=== PATIENT | female | born 1960 | race Caucasian/White ===

== ENCOUNTER 2025-03-07 11:36 | Emergency (ER) | payer MEDICARE, MEDICAID, SELFPAY ==
[2025-03-07 11:45] VITALS: BP 145/76; PULSE 78; TEMP 36.4; O2SAT 100; BMI 17.5
--- NOTE | 2025-03-07 11:49 | ECG_ITS ---
[facility] Test Date: 2025-03-07 Pat Name: Yelena Beal Department: Room: Gender: Female Assistant Professor Of Philosophy: : 1960 Requested By: Emerson Escobar Order Number: [id number] Avila MD: Randal Mistry M.D. Measurements Intervals [place] Rate: 77 P: 53 RI: 149 QRS: -20 QRSD: 92 T: 16 QT: 361 QTc: 411 Interpretive Statements SINUS RHYTHM No previous ECG available for comparison Electronically Signed On 03-09-2025 13:11:15 CDT by Randal Mistry M.D. [id number]
--- OUTSIDE RECORDS SUMMARY | 2025-03-07 11:51 | XMS_ITS | Encounter Summary ---
Author Organization [facility] Address [address] [place] [address] Care Team Providers Care Tractor Operator Laser Leveling Name Role Phone Jamal Gant MD Primary Care Provider Encounter Details Date Type Department Care Team (Late st Contact Info) Description 02/07/2008 Orders Only [facility]iology [address] [place] [address] System, Provider Not In, [address] [place] [address] Social History Tobacco Use Types Packs/Day Years Used Date Smoking Tobacco: Never Assessed Comments Unknown Sex and Gender Information Value Date Recorded Sex Assigned at Not on file Legal Sex Female 8:00 PM CDT Gender Identity Not on file Sexual Orientation Not on file documented as of this encounter Plan of Treatment Not on file documented as of this encounter Procedures Procedure Name Priority Date/Time Associated Diagnosis Comments OUTSIDE IMAGES 02/07/2008 3:48 PM CDT documented in this encounter Results * Outside Images (02/07/2008 3:48 PM CDT) Anatomical Region Laterality Modality N/A Radiographic Amena ging 02/07/2008 3:48 PM CDT Narrative 02/07/2008 3:48 PM CDT Historic images from [facility] exist and can be viewed by using the hyperlink to access [employer] pacs: KUB Abd Single Procedure Note System, Provider Not In - 06/13/2018 Historic images from [facility] exist and can be viewed by using theOsseon Therapeuticslink to access [employer] pacs: KUB Abd Single us Provider Not In System MD TRE[facility] IM[facility] OR DERABLES Final Result documented in this encounter Visit Diagnoses Not on filedocumented in this encounter Additional Health Concerns Infection Onset Date Last Indicated Resolved Time COVID-19 (rule out) 02/17/2021 02/17/2021 02/20/20 21 1:30 AM CDT documented as of this encounter Care Teams Tractor Operator Laser Leveling Relationship Specialty Start Date End Date Jamal Gant MD [address] [place] [id number] PCP - General Internal Medicine 10/31/20 documented as of this encounter
--- OUTSIDE RECORDS SUMMARY | 2025-03-07 11:51 | XMS_ITS | Encounter Summary ---
Author Organization [facility] Address [address] [place] [address] Care Team Providers Care Dining Chair Seat Cushion Trimmer Name Role Phone Jamal Gant MD Primary Care Provider Encounter Details Date Type Department Care Team (Late st Contact Info) Description 06/01/2010 Orders Only [facility] Radiology [address] [place] [address] System, Provider Not In, [address] [place] [address] Social History Tobacco Use Types Packs/Day Years [...] Priority Date/Time Associated Diagnosis Comments OUTSIDE IMAGES 06/01/2010 8:54 AM BOOKSEAMER BLINDSTITCH documented in this encounter Results * Outside Images (06/01/2010 8:54 AM BOOKSEAMER BLINDSTITCH) Anatomical Region Laterality Modality N/A Radiographic Amena ging 06/01/2010 8:54 AM BOOKSEAMER BLINDSTITCH Narrative 06/01/2010 8:54 AM BOOKSEAMER BLINDSTITCH Historic images from [facility] exist and can be viewed by using the hyperlink to access [employer] pacs: KAREN SCREENING SWAPNA Procedure Note System, Provider Not In - 07/14/2020 Historic images from [facility] exist and can be viewed byusing the hyperlink to access [employer] pacs: KAREN SCREENING SWAPNA us Provider Not In System MD [facility] OR DERABLES Final Result documented in this encounter Visit Diagnoses Not on filedocumented in this encounter Additional Health Concerns Infection Onset Date Last Indicated Resolved Time COVID-19 (rule out) 02/17/2021 02/17/2021 02/20/20 21 1:30 AM CDT documented as of this encounter Care Teams Dining Chair Seat Cushion Trimmer Relationship Specialty Start Date End Date Jamal Gant MD [address] [place] [address] PCP - General Internal Medicine 10/31/20 documented as of this encounter
--- OUTSIDE RECORDS SUMMARY | 2025-03-07 11:51 | XMS_ITS | Encounter Summary ---
Author Organization [facility] Address [address] [place] [address] Care Team Providers Care Motorcycle Mechanic Apprentice Name Role Phone Jamal Gant MD Primary Care Provider [phone] Reason for Visit * Reason Comments Med Refill Encounter Details Date Type Department Care Team (Late st Contact Info) Description 02/24/2021 Refill [facility] [place] - Primary Care [address] [place] [address] Jamal Gant MD [address] [facility] [address] [place] [address] Left shoulder pain, unspecified chronicity Social History Tobacco Use Types Packs/Day Years Used Date Smoking Tobacco: Former Smokeless Tobacco: Never Alcohol Use Standard Drinks/Week Comments No 0 (1 standard drink = 0.6 oz pur e alcohol) PHQ-2 Answer Date Recorded PHQ-2 Score 0 08/18/2020 Comments No Sex and Gender Information Value Date Recorded Sex Assigned at Not on file Legal Sex Female 8:00 PM CDT Gender Identity Not on file Sexual Orientation Not on file COVID-19 Exposure Response Date Recorded In the last month, have you been in contact with someone who was confirmed or suspected to have Coronavirus / COVID-19? No / Unsure 02/17/2021 2:39 PM CDT documented as of this encounter Plan of Treatment Not on file documented as of this encounter Visit Diagnoses Diagnosis Left shoulder pain, unspecified chronicity documented in this encounter Additional Health Concerns Health Status Noted Date Alive and well 09/22/2020 Assessment Noted Time A fall risk assessment has been complete d for the patient 09/22/2020 11:14 AM CDT documented as of this encounter Care Teams Motorcycle Mechanic Apprentice Relationship Specialty Start Date End Date Jamal Gant MD [address] [facility] [place] [address] PCP - General Internal Medicine 10/31/20 documented as of this encounter
--- OUTSIDE RECORDS SUMMARY | 2025-03-07 11:51 | XMS_ITS | Encounter Summary ---
Author Organization [facility] Address [address] [place] [address] Care Team Providers Care Manager Combination Name Role Phone Jamal Gant MD Primary Care Provider [phone] Reason for Visit * Reason Comments Med Refill Encounter Details Date Type Department Care Team (Late st Contact Info) Description 12/11/2020 Refill [facility] [place] - Primary Care [address] [place] [address] Jamal Gant MD [address] [facility] [address] [place] [address] Nausea; Motion sickness, initial encounter; Bronchitis Social History Tobacco Use Types Packs/Day Years [...] on file documented as of this encounter Miscellaneous Notes * Telephone Encounter - Urvashi Santiago LPN - 12/11/2020 2:58 PM CDT Patient to call the office. documented in this encounter Plan of Treatment Not on file documented as of this encounter Visit Diagnoses Diagnosis Nausea Nausea alone Motion sickness, initial encounter Bronchitis Bronchitis, not specified as acute or chronic documented in this encounter Additional Health Concerns Health Status Noted Date Alive and well 09/22/2020 Infection Onset Date Last Indicated Resolved Time COVID-19 (rule out) 02/17/2021 02/17/2021 02/20/20 21 1:30 AM CDT Assessment Noted Time A fall risk assessment has been complete d for the patient 09/22/2020 11:14 AM CDT documented as of this encounter Care Teams Manager Combination Relationship Specialty Start Date End Date Jamal Gant MD [address] [place] [id number] PCP - General Internal Medicine 10/31/20 documented as of this encounter
--- OUTSIDE RECORDS SUMMARY | 2025-03-07 11:51 | XMS_ITS | Encounter Summary ---
Author Organization [facility] Address [address] [place] [address] Care Team Providers Care Mold Insert Changer Name Role Phone Jamal Gant MD Primary Care Provider [phone] Reason for Visit * Reason Comments Med Refill Encounter Details Date Type Department Care Team (Late st Contact Info) Description 02/28/2025 Refill [facility] [place] - Primary Care [address] [place] [address] Lee Meza MD [address] [facility] [address] [place] [address] Primary osteoarthritis involving multiple joints; Lumbar degenerative disc disease Social History Tobacco Use Types Packs/Day Years Used Date Smoking Tobacco: Former Cigarettes 2017 Smokeless Tobacco: Never Comments:quit in 2013 Alcohol Use Standard Drinks/Week Comments No 0 (1 standard drink = 0.6 oz pur e alcohol) [facility] Utilities Answer Date Recorded In the past 12 months has [employer] electric, gas, oil, or water company threatened to shut off services in your home? No 01/01/2025 PHQ-2 Answer Date Recorded PHQ-2 Score 2 09/03/2024 Hunger Vital Sign Answer Date Recorded Within the past 12 months, y ou worried that your food would run out before you got the money to buy more. Never true 01/02/20 25 Within the past 12 months, t he food you bought just didn't last and you didn't have money to get more. Never true 01/01/2025 PRAPARE - Transportation Answer Date Re corded In the past 12 months, has l ack of transportation kept you from medical appointments or from getting medications? No 12/18 In the past 12 months, has l ack of transportation kept you from meetings, work, or from getting things needed for daily living? No 01/01/2025 Housing Stability Vital Sign Answer Tomás e Recorded In the last 12 months, was t here a time when you were not able to pay the mortgage or rent on time? No 01/01/2025 Number of Times Moved in the Last Year Not on fi le 01/01/2025 At any time in the past 12 m [facility], were you homeless or living in a usp (including now)? No 01/01/2025 Comments No Sex and Gender Information Value Date Recorded Sex Assigned at Not on file Legal Sex Female 8:00 PM CDT Gender Identity Not on file Sexual Orientation Not on file documented as of this encounter Plan of Treatment Not on file documented as of this encounter Visit Diagnoses Diagnosis Primary osteoarthritis involving multiple joints Lumbar degenerative disc disease documented in this encounter Additional Health Concerns Health Status Noted Date Alive and well 12/13/2023 Assessment Noted Time PHQ-9 Depression Total Score: 2 09/04/19 25 1:32 PM CDT A fall risk assessment has been complete d for the patient 01/01/2025 3:29 PM CDT documented as of this encounter Care Teams Mold Insert Changer Relationship Specialty Start Date End Date Jamal Gant MD [address] [facility] [place] [address] PCP - General Internal Medicine 10/31/20 documented as of this encounter
--- OUTSIDE RECORDS SUMMARY | 2025-03-07 11:51 | XMS_ITS | Encounter Summary ---
Author Organization [facility] Address [address] [place] [address] Care Team Providers Care Theatrical Scenic Designer Name Role Phone Jamal Gant MD Primary Care Provider Encounter Details Date Type Department Care Team (Late st Contact Info) Description 07/16/2016 Orders Only [facility] - Primary Care [address] [place] [address] Brianna De LPN Pain Social History Tobacco Use Types Packs/Day Years Used Date Smoking Tobacco: Former Alcohol Use Standard Drinks/Week Comments No 0 (1 standard drink = 0.6 oz pur e alcohol) Comments No Sex and Gender Information Value Date Recorded Sex Assigned at Not on file Legal Sex Female 8:00 PM CDT Gender Identity Not on file Sexual Orientation Not on file documented as of this encounter Plan of Treatment Not on file documented as of this encounter Visit Diagnoses Diagnosis Pain Generalized pain documented in this encounter Additional Health Concerns Infection Onset Date Last Indicated Resolved Time COVID-19 (rule out) 02/17/2021 02/17/2021 02/20/20 21 1:30 AM CDT documented as of this encounter Care Teams Theatrical Scenic Designer Relationship Specialty Start Date End Date Jamal Gant MD [address] [place] [address] PCP - General Internal Medicine 10/31/20 documented as of this encounter
--- OUTSIDE RECORDS SUMMARY | 2025-03-07 11:51 | XMS_ITS | Encounter Summary ---
Author Organization [facility] Address [address] [place] [place] [address] Care Team Providers Care Electrostatic Painter Name Role Phone Jamal Gant MD Primary Care Provider [phone] Reason for Visit * Reason Comments Med Refill Encounter Details Date Type Department Care Team (Late st Contact Info) Description 02/28/2025 Refill [facility] [place] - Primary Care [address] [facility] [place] [phone] Gisella Cueto FNP [address] [place], [place] [phone] YLUI (generalized anxiety disorder); Obsessive compulsive personality disorder (HCC) Social History Tobacco Use Types Packs/Day Years Used Date Smoking Tobacco: Former Cigarettes - 2017 Smokeless Tobacco: Never Comments:quit in 2013 Alcohol Use Standard Drinks/Week Comments No 0 (1 standard drink = 0.6 oz pur e alcohol) [facility] Utilities Answer Date Recorded In the past 12 months has [employer] electric, gas, oil, or water company threatened [...] any time in the past 12 m [facility], were you homeless or living in a intermediate (including now)? No 01/01/2025 Comments No Sex and Gender Information Value Date Recorded Sex Assigned at Not on file Legal Sex Female 8:00 PM CDT Gender Identity Not on file Sexual Orientation Not on file documented as of this encounter Plan of Treatment Not on file documented as of this encounter Visit Diagnoses Diagnosis YULI (generalized anxiety disorder) Generalized anxiety disorder Obsessive compulsive personality disorder (HCC) documented in this encounter Additional Health Concerns Health Status Noted Date Alive and well 12/13/2023 Assessment Noted Time PHQ-9 Depression Total Score: 2 09/04/19 25 1:32 PM CDT A fall risk assessment has been complete d for the patient 01/01/2025 3:29 PM CDT documented as of this encounter Care Teams Electrostatic Painter Relationship Specialty Start Date End Date Jamal Gant MD [address] [place] [id number] PCP - General Internal Medicine 10/31/20 documented as of this encounter
--- OUTSIDE RECORDS SUMMARY | 2025-03-07 11:51 | XMS_ITS | Encounter Summary ---
Author Organization [facility] Address [address] [place] [address] Care Team Providers Care Lab Coordinator Name Role Phone Jamal Gant MD Primary Care Provider [phone] Reason for Visit * Reason Comments Med Refill Encounter Details Date Type Department Care Team (Late st Contact Info) Description 10/30/2020 [facility] [address] [place], [place] [phone] Talib Benavides MD [address] [facility] [place] [address] Seasonal allergic rhinitis; Seasonal allergic rhinitis Social History Tobacco Use Types Packs/Day Years [...] or suspected to have Coronavirus / COVID-19? Unable to assess 10/27/2020 7:54 AM CDT documented as of this encounter Miscellaneous Notes * Telephone Encounter - Vanessa Panda LPN - 10/30/2020 4:36 PM CDT Needs to find dr to replace astrid * Telephone Encounter - Vanessa Panda LPN - 10/30/2020 4:34 PM CDT She has not found doctor to replace astrid documented in this encounter Plan of Treatment Not on file documented as of this encounter Visit Diagnoses Diagnosis Seasonal allergic rhinitis Allergic rhinitis, cause unspecified documented in this encounter Additional Health Concerns Health Status Noted Date Alive and well 09/22/2020 Infection Onset Date Last Indicated Resolved Time COVID-19 (rule out) 02/17/2021 02/17/2021 02/20/20 21 1:30 AM CDT Assessment Noted Time A fall risk assessment has been complete d for the patient 09/22/2020 11:14 AM CDT documented as of this encounter Care Teams Lab Coordinator Relationship Specialty Start Date End Date Jamal Gant MD [address] [place] [address] [place] [address] PCP - General Internal Medicine 10/31/20 documented as of this encounter
--- OUTSIDE RECORDS SUMMARY | 2025-03-07 11:51 | XMS_ITS | Encounter Summary ---
Author Organization [facility] Address [address] [place] [address] Care Team Providers Care Spud Driller Name Role Phone Jamal Gant MD Primary Care Provider [phone] Reason for Visit * Reason Comments Med Refill Encounter Details Date Type Department Care Team (Late st Contact Info) Description 04/10/2022 Refill [facility] [place] - Primary Care [address] [place] [address] Jamal Gant MD [address] [facility] [address] [place], [place] [phone] Lumbar radiculopathy Social History Tobacco Use Types Packs/Day Years Used Date Smoking Tobacco: Former Cigarettes 1 10 Smokeless Tobacco: Never Comments:quit in 2013 Alcohol [...] Telephone Encounter - Urvashi Santiago LPN - 04/10/2022 9:18 PM CDT Too soon to refill. documented in this encounter Plan of Treatment Not on file documented as of this encounter Visit Diagnoses Diagnosis Lumbar radiculopathy Thoracic or lumbosacral neuritis or radiculitis, unspecified documented in this encounter Additional Health Concerns Health Status Noted Date Alive and well 01/19/2022 Assessment Noted Time A fall risk assessment has been complete d for the patient 01/19/2022 6:11 PM CDT documented as of this encounter Care Teams Spud Driller Relationship Specialty Start Date End Date Jamal Gant MD [address] [place] [address] PCP - General Internal Medicine 10/31/20 documented as of this encounter
--- OUTSIDE RECORDS SUMMARY | 2025-03-07 11:51 | XMS_ITS | Encounter Summary ---
Author Organization [facility] Address [address] [place] [address] Care Team Providers Care Outpatient Physical Therapist Name Role Phone Jamal Gant MD Primary Care Provider [phone] Reason for Visit * Reason Comments Med Refill Encounter Details Date Type Department Care Team (Late st Contact Info) Description 03/05/2024 Refill [facility] [place] - Primary Care [address] [place] [address] Jamal Gant MD [address] [facility] [address] [place], [place] [phone] Primary osteoarthritis involving multiple joints; Lumbar degenerative disc disease Social History Tobacco Use Types Packs/Day Years Used Date Smoking Tobacco: Former Cigarettes 1 2017 Smokeless Tobacco: Never Comments:quit in 2013 Alcohol Use Standard Drinks/Week Comments No 0 (1 standard drink = 0.6 oz pur e alcohol) PHQ-2 Answer Date Recorded PHQ-2 Score 0 07/21/2023 Comments No Sex and Gender Information Value Date Recorded Sex Assigned at Not on file Legal Sex Female 8:00 PM CDT Gender Identity Not on file Sexual Orientation Not on file documented as of this encounter Miscellaneous Notes * Telephone Encounter - Urvashi Santiago LPN - 03/05/2024 10:46 AM CDT Too soon to refill. documented in this encounter Plan of Treatment Not on file documented as of this encounter Visit Diagnoses Diagnosis Primary osteoarthritis involving multiple joints Lumbar degenerative disc disease documented in this encounter Additional Health Concerns Health Status Noted Date Alive and well 12/13/2023 Assessment Noted Time A fall risk assessment has been complete d for the patient 12/13/2023 2:15 PM CDT documented as of this encounter Care Teams Outpatient Physical Therapist Relationship Specialty Start Date End Date Jamal Gant MD [address] [address] PCP - General Internal Medicine 10/31/20 documented as of this encounter
--- OUTSIDE RECORDS SUMMARY | 2025-03-07 11:51 | XMS_ITS | Encounter Summary ---
Author Organization [facility] Address [address] [place] [address] Care Team Providers Care Dosier Operator Name Role Phone Jamal Gant MD Primary Care Provider [phone] Reason for Visit * Reason Comments Med Refill Encounter Details Date Type Department Care Team (Late st Contact Info) Description 10/01/2021 Refill [facility] [place] - Primary Care [address] [place] [address] Jamal Gant MD [address] [facility] [address] [place] [address] Cough Social History Tobacco Use Types Packs/Day Years [...] have Coronavirus / COVID-19? No / Unsure 09/29/2021 7:38 AM CDT documented as of this encounter Miscellaneous Notes * Telephone Encounter - Urvashi Santiago LPN - 10/01/2021 8:36 AM CDT Patient to call provider. documented in this encounter Plan of Treatment Not on file documented as of this encounter Visit Diagnoses Diagnosis Cough documented in this encounter Additional Health Concerns Health Status Noted Date Alive and well 09/29/2021 Assessment Noted Time A fall risk assessment has been complete d for the patient 09/29/2021 8:16 AM CDT documented as of this encounter Care Teams Dosier Operator Relationship Specialty Start Date End Date Jamal Gant MD [address] [place] [address] PCP - General Internal Medicine 10/31/20 documented as of this encounter
--- OUTSIDE RECORDS SUMMARY | 2025-03-07 11:51 | XMS_ITS | Encounter Summary ---
Author Organization [facility] Address [address] [place] [address] Care Team Providers Care Store Stock Help Name Role Phone Jamal Gant MD Primary Care Provider [phone] Encounter Details Date Type Department Care Team (Late st Contact Info) Description 06/04/2009 Orders Only [facility] Radiology [address] [place] [address] System, Provider Not In, [address] [place] [address] Social History Tobacco Use Types Packs/Day Years [...] Priority Date/Time Associated Diagnosis Comments OUTSIDE IMAGES 06/04/2009 3:54 PM CHECK SCALER documented in this encounter Results * Outside Images (06/04/2009 3:54 PM CHECK SCALER) Anatomical Region Laterality Modality N/A Radiographic Amena ging 06/04/2009 3:54 PM CHECK SCALER Narrative 06/04/2009 3:54 PM CHECK SCALER Historic images from [facility] exist and can be viewed by using the hyperlink to access [employer] pacs: spine, cervical, ap & lat Procedure Note System, Provider Not In - 06/10/2018 Historic images from [facility] exist and can be viewed by using the[employer]ent[employer]link to access [employer] pacs: spine, cervical, ap & lat us Provider Not In System MD TREVIÑO GENERAL IMAGING OR DERABLES Final Result documented in this encounter Visit Diagnoses Not on filedocumented in this encounter Additional Health Concerns Infection Onset Date Last Indicated Resolved Time COVID-19 (rule out) 02/17/2021 02/17/2021 02/20/20 1:30 AM CDT documented as of this encounter Care Teams Store Stock Help Relationship Specialty Start Date End Date Jamal Gant MD [address] [place] [id number] PCP - General Internal Medicine 10/31/20 documented as of this encounter
--- OUTSIDE RECORDS SUMMARY | 2025-03-07 11:51 | XMS_ITS | Encounter Summary ---
Author Organization [facility] Address [address] [place] [address] Care Team Providers Care Wax Machine Operator Name Role Phone Jamal Gant MD Primary Care Provider [phone] Encounter Details Date Type Department Care Team (Late st Contact Info) Description 04/02/2014 Orders Only [facility] Radiology [address] [place] [address] System, Provider Not In, [address] [place] [address] Social History Tobacco Use Types Packs/Day Years [...] Priority Date/Time Associated Diagnosis Comments OUTSIDE IMAGES 04/02/2014 2:07 PM CDT documented in this encounter Results * Outside Images (04/02/2014 2:07 PM CDT) Anatomical Region Laterality Modality N/A Radiographic Amena ging 04/02/2014 2:07 PM CDT Narrative 04/02/2014 2:07 PM CDT Historic images from [facility] exist and can be viewed by using the hyperlink to access [employer] pacs: KAREN SCREENING DIGITAL W/ CAD Procedure Note System, Provider Not In - 07/18/2020 Historic images from [facility] exist and can be viewed byusing the hyperlink to access [employer] pacs: KAREN SCREENING DIGITAL W/CAD us Provider Not In System MD T[facility] IM[facility] OR DERABLES Final Result documented in this encounter Visit Diagnoses Not on filedocumented in this encounter Additional Health Concerns Infection Onset Date Last Indicated Resolved Time COVID-19 (rule out) 02/17/2021 02/17/2021 02/20/20 21 1:30 AM CDT documented as of this encounter Care Teams Wax Machine Operator Relationship Specialty Start Date End Date Jamal Gant MD [address] [place] [address] PCP - General Internal Medicine 10/31/20 documented as of this encounter
--- OUTSIDE RECORDS SUMMARY | 2025-03-07 11:51 | XMS_ITS | Encounter Summary ---
Author Organization [facility] Address [address] [place] [address] Care Team Providers Care Bankman Name Role Phone Jamal Gant MD Primary Care Provider Reason for Visit * Reason Comments Med Refill Encounter Details Date Type Department Care Team (Late st Contact Info) Description 03/01/2025 Refill [facility] [place] - Primary Care [address] [place] [address] Lee Meza MD [address] [facility] [address] [place] [address] Primary osteoarthritis involving multiple joints; Lumbar degenerative disc disease Social History Tobacco Use Types Packs/Day Years Used Date Smoking Tobacco: Former Cigarettes 2017 Smokeless Tobacco: Never Comments:quit in 2013 Alcohol Use Standard Drinks/Week Comments No 0 (1 standard drink = 0.6 oz pur e alcohol) [facility] Utilities Answer Date Recorded In the past 12 months has [employer] electric, gas, oil, or water company threatened [...] any time in the past 12 m [facility], were you homeless or living in a prison (including now)? No 01/01/2025 Comments No Sex and Gender Information Value Date Recorded Sex Assigned at Not on file Legal Sex Female 8:00 PM CDT Gender Identity Not on file Sexual Orientation Not on file documented as of this encounter Miscellaneous Notes * Telephone Encounter - Jamal Gant MD - 03/04/2025 10:10 AM CDT This was just filled on 02/07. documented in this encounter Plan of Treatment [...] documented as of this encounter Care Teams Bankman Relationship Specialty Start Date End Date Jamal Gant MD [address] [place] [id number] PCP - General Internal Medicine 10/31/20 documented as of this encounter
--- OUTSIDE RECORDS SUMMARY | 2025-03-07 11:51 | XMS_ITS | Encounter Summary ---
Author Organization [facility] Address [address] [place] [address] Care Team Providers Care Senior Integration Architect Name Role Phone Jamal Gant MD Primary Care Provider [phone] Reason for Visit * Reason Comments Med Refill Encounter Details Date Type Department Care Team (Late st Contact Info) Description 10/02/2019 [facility] [address] [facility] [place] [address] Talib Benavides MD [address] [facility] [place] [address] Nausea; Motion sickness, initial encounter; Muscle spasm Social History Tobacco Use Types Packs/Day Years [...] Nausea Nausea alone Motion sickness, initial encounter Muscle spasm Spasm of muscle documented in this encounter Additional Health Concerns Health Status Noted Date Alive and well 08/20/2019 Infection Onset Date Last Indicated Resolved Time COVID-19 (rule out) 02/17/2021 02/17/2021 02/20/20 21 1:30 AM CDT Assessment Noted Time A fall risk assessment has been complete d for the patient 08/20/2019 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
--- OUTSIDE RECORDS SUMMARY | 2025-03-07 11:51 | XMS_ITS | Encounter Summary ---
Author Organization [facility] Address [address] [place] [address] Care Team Providers Care Concrete Carpenter Name Role Phone Jamal Gant MD Primary Care Provider [phone] Encounter Details Date Type Department Care Team (Late st Contact Info) Description 05/28/2019 Orders Only [facility] [place] - Primary Care [address] [place] [address] Kristin Gooden Social History Tobacco Use Types Packs/Day Years [...] documented as of this encounter Visit Diagnoses Not on filedocumented in this encounter Additional Health Concerns Health Status Noted Date Alive and well 05/07/2019 Infection Onset Date Last Indicated Resolved Time COVID-19 (rule out) 02/17/2021 02/17/2021 02/20/20 21 1:30 AM CDT Assessment Noted Time A fall risk assessment has been complete d for the patient 05/07/2019 4:19 PM VOCATIONAL GUIDANCE COUNSELOR documented as of this encounter Care Teams Concrete Carpenter Relationship Specialty Start Date End Date Jamal Gant MD [address] [place] [address] (work) PCP - General Internal Medicine 10/31/20 documented as of this encounter
--- OUTSIDE RECORDS SUMMARY | 2025-03-07 11:51 | XMS_ITS | Encounter Summary ---
Author Organization [facility] Address [address] [place] [address] Care Team Providers Care Intellectual Property Legal Assistant Name Role Phone Jamal Gant MD Primary Care Provider [phone] Reason for Visit * Reason Comments Med Refill Encounter Details Date Type Department Care Team (Late st Contact Info) Description 03/04/2025 Refill [facility] [place] - Primary Care [address] [place] [address] Lee Meza MD [address] [facility] [address] [place] [address] Primary osteoarthritis involving multiple joints; Lumbar degenerative disc disease Social History Tobacco Use Types Packs/Day Years Used Date Smoking Tobacco: Former Cigarettes 2017 Smokeless Tobacco: Never Comments:quit in 2013 Alcohol Use Standard Drinks/Week Comments No 0 (1 standard drink = 0.6 oz pur e alcohol) [facility] Utilities Answer Date Recorded In the past 12 months has [employer] electric, gas, oil, or water company threatened [...] any time in the past 12 m [facility], were you homeless or living in a jail (including now)? No 01/01/2025 Comments No Sex and Gender Information Value Date Recorded Sex Assigned at Not on file Legal Sex Female 8:00 PM CDT Gender Identity Not on file Sexual Orientation Not on file documented as of this encounter Miscellaneous Notes * Telephone Encounter - Rosa Elena Ugalde LPN - 03/05/2025 10:00 AM CDT Last filled 02/05/2025 LV 01/01/2025 NO FOLLOW UP SCHEDULED documented in this encounter Plan of Treatment [...] documented as of this encounter Care Teams Intellectual Property Legal Assistant Relationship Specialty Start Date End Date Jamal Gant MD [address] [place] [id number] PCP - General Internal Medicine 10/31/20 documented as of this encounter
--- OUTSIDE RECORDS SUMMARY | 2025-03-07 11:51 | XMS_ITS | Encounter Summary ---
Author Organization [facility] Address [address] [place] [address] Care Team Providers Care Metalizing Machine Operator Name Role Phone Jamal Gant MD Primary Care Provider Reason for Visit * Reason Comments Med Refill Encounter Details Date Type Department Care Team (Late st Contact Info) Description 12/15/2023 Refill [facility] - Primary Care [address] [place] [address] Jamal Gant MD [address] [place] [address] [address] Primary osteoarthritis involving multiple joints; Lumbar [...] encounter Miscellaneous Notes * Telephone Encounter - Heide Buchanan LPN - 12/15/2023 8:22 AM CDT Sent in on 12/12 documented in this encounter Plan of Treatment [...] documented as of this encounter Care Teams Metalizing Machine Operator Relationship Specialty Start Date End Date Jamal Gant MD [address] [place] [address] [address] PCP - General Internal Medicine 10/31/20 documented as of this encounter
--- OUTSIDE RECORDS SUMMARY | 2025-03-07 11:51 | XMS_ITS | Encounter Summary ---
Author Organization [facility] Address [address] [place] [address] Care Team Providers Care Museum Preparator Name Role Phone Jamal Gant MD Primary Care Provider [phone] Encounter Details Date Type Department Care Team (Late st Contact Info) Description 11/29/2016 Orders Only [facility] Radiology [address] [place] [address] System, Provider Not In, [address] [place] [address] Social History Tobacco Use Types Packs/Day Years [...] Priority Date/Time Associated Diagnosis Comments OUTSIDE IMAGES 11/29/2016 3:08 PM CDT documented in this encounter Results * Outside Images (11/29/2016 3:08 PM CDT) Anatomical Region Laterality Modality N/A Radiographic Amena ging 11/29/2016 3:08 PM CDT Narrative 11/29/2016 3:08 PM CDT Historic images from [facility] exist and can be viewed by using the hyperlink to access [employer] pacs: KAREN SCREENING DIGITAL BL W/ CAD Procedure Note System, Provider Not In, - 07/11/2020 Historic images from [facility] exist and can be viewed byusing the hyperlink to access [employer] [place] [employer] pacs: [facility] SCREENING DIGITAL BL W/CAD us Provider Not In System MD [facility] IM[facility] OR DERABLES Final Result documented in this encounter Visit Diagnoses Not on filedocumented in this encounter Additional Health Concerns Infection Onset Date Last Indicated Resolved Time COVID-19 (rule out) 02/17/2021 02/17/2021 02/20/20 21 1:30 AM CDT documented as of this encounter Care Teams Museum Preparator Relationship Specialty Start Date End Date Jamal Gant MD [address] [facility] [place] [address] PCP - General Internal Medicine 10/31/20 documented as of this encounter
--- OUTSIDE RECORDS SUMMARY | 2025-03-07 11:51 | XMS_ITS | Clinical Summary ---
Author Organization [facility] Address [address] [place] [address] Care Team Providers Care Technical Administrator Name Role Phone Jamal Gant MD Primary Care Provider [phone] Allergies Active Allergy Reactions Criticality Noted Date Comments Acetaminophen-Codeine Vomiting High Codeine Sweating 09/29/2021 Iodine And Iodide Containing Products Hives Medium 01/14/2016 Iodinated Contrast Media Hives High 01/14/2016 Medications * This document contains information received from the source organization and may not represent a complete record from that organization. baclofen (LIORESAL) 20 mg tabletIndications :Lumbar radiculopathy TAKE 1 TABLET BY MOUTH TWICE DAILY NEEDED FOR muscle SPASMS 28 tablet 11/05/19 25 Active fluticasone propionate (FLONASE) 50 mcg/actuation nasal sprayIndications: Seasonal allergic rhinitis use 2 sprays in each nostril EVERY DAY 16 g 11/08/19 25 Active triamcinolone acetonide (KENALOG) 0.1 % creamIndications: Folliculitis APPLY TO THE AFFECTED AREA(S) TOPICALLY TWICE DAILY 45 g 11/08/19 25 Active omeprazole (PriLOSEC) [address] capsuleIndication s:Gastroesophagea l reflux disease without esophagitis TAKE 1 CAPSULE BY MOUTH DAILY 30 MINUTES BEFORE breakfast 30 capsule 12/01/19 25 Active celecoxib (CeleBREX) 200 mg capsuleIndication s:Lumbar degenerative disc disease,DDD (degenerative disc disease), cervical,Primary osteoarthritis involving multiple joints TAKE 1 CAPSULE BY MOUTH EVERY DAY 30 capsule 12/01/19 25 Active montelukast (SINGULAIR) 10 mg tabletIndications :Seasonal allergic rhinitis TAKE 1 TABLET BY MOUTH AT BEDTIME 30 tablet 12/01/19 25 Active meclizine (ANTIVERT) 25 mg tabletIndications :Dizziness TAKE 1 TABLET BY MOUTH THREE TIMES DAILY NEEDED FOR DIZZINESS 30 tablet 01/06/20 25 Active rOPINIRole (REQUIP) 1 mg tabletIndications :Restless leg syndrome,RLS (restless legs syndrome) TAKE 1 TABLET BY MOUTH TWO hours BEFORE bedtime 30 tablet 02/06/20 25 Active diclofenac sodium (VOLTAREN) 1 % gelIndications:Le ft shoulder pain, unspecified chronicity APPLY TWO GRMS. TO AFFECTED AREA FOUR TIMES DAILY 100 g 02/29/20 25 Active ALBUTEROL 90 mcg/puff inhl inhalerIndication s:Bronchitis inhale ONE PUFF BY MOUTH EVERY 6 HOURS NEEDED for wheezing OR SHORTNESS OF BREATH 18 g 02/29/20 25 Active sertraline (ZOLOFT) 100 mg tabletIndications :YULI (generalized anxiety disorder),Obsessi ve compulsive personality disorder (HCC) TAKE 1 TABLET BY MOUTH EVERY DAY 30 tablet 03/01/20 25 Active HYDROcodone-aceta minophen (NORCO) 5-325 mg per tabletIndications :Primary osteoarthritis involving multiple joints,Lumbar degenerative disc disease Take 1 tablet by mouth every 8 (eight) hours as needed for moderate pain. Max Daily Amount: 3 tablets 90 tablet 03/05/20 25 Active diclofenac sodium (VOLTAREN) 1% gelIndications:Le ft shoulder pain, unspecified chronicity APPLY TWO GRMS. TO AFFECTED AREA FOUR TIMES DAILY 100 g 02/26/20 24 025 Discontinued ALBUTEROL 90 mcg/puff inhl inhalerIndication s:Bronchitis inhale ONE PUFF BY MOUTH EVERY 6 HOURS NEEDED for wheezing OR SHORTNESS OF BREATH 18 g 08/13/19 25 025 Discontinued sertraline (ZOLOFT) 100 mg tabletIndications :YULI (generalized anxiety disorder),Obsessi ve compulsive personality disorder (HCC) TAKE 1 TABLET BY MOUTH DAILY 30 tablet 5 09/04/19 25 025 Discontinued HYDROcodone-aceta minophen (NORCO) 5-325 mg per tabletIndications :Primary osteoarthritis involving multiple joints,Lumbar degenerative disc disease Take 1 tablet by mouth 3 (three) times a day as needed for moderate pain. Max Daily Amount: 3 tablets 90 tablet 02/06/20 025 Discontinued Active Problems Problem Noted Date Diagnosed Date Postsurgical state, eye 11/16/2024 Dry eyes 10/17/2024 Posterior capsular opacification, right 10/18/19 Iron deficiency anemia due to chronic blood loss 12/13/2023 Assessment & Plan (12/13/2023 5:37 PM CDT): Counts improving. Continue supplemental iron. DDD (degenerative disc disease), cervical 2023 Assessment & Plan (12/13/2023 5:39 PM CDT): Pain persists unchanged. Continue current pain management regimen. Mixed hyperlipidemia 09/29/2021 Assessment & Plan (09/29/2021 9:05 AM CDT): Check laboratory. Bipolar I disorder with depression, severe 09/29 TMJ syndrome 07/01/2020 Overview (07/01/2020): Left jaw, June 2020. Follow TMJ type diet. YULI (generalized anxiety disorder) 02/26/2020 Assessment & Plan (09/03/2024 5:37 PM CDT): Controlled Continue current medications Assessment & Plan (04/08/2021 4:06 PM CDT): Continue current dose of hydroxyzine and Zoloft. Continue to follow with Cathy Ortiz Lumbar degenerative disc disease 01/21/2020 Assessment & Plan (01/01/2025 5:28 PM CDT): Neurosurgery referral CT of lumbar thoracic Depo Medrol 80 mg IM today Toradol 30 mg IM today Assessment & Plan (12/13/2023 5:35 PM CDT): Pain persists unchanged. Continue current pain management regimen. Assessment & Plan (02/03/2023 11:52 AM CDT): Toradol and Depo-Medrol injections today. Assessment & Plan (09/29/2021 9:02 AM CDT): Begin Celebrex 200 mg daily. Osteopenia of both hips 06/23/2017 Overview (06/23/2017): T score -1.5 at [facility], April 2017. Neurogenic bladder 01/11/2016 Overview (01/11/2016): From neck fracture. S/p bladder stimulator placement. Assessment & Plan (04/08/2021 4:05 PM CDT): Continue to follow with Urology. Chronic anemia 01/11/2016 Assessment & Plan (09/29/2021 9:02 AM CDT): Check iron studies, B12 and folate. Assessment & Plan (04/08/2021 4:06 PM CDT): CBC today. History of colonic polyps 01/11/2016 Overview (06/16/2016): 2007 tubular adenoma. 2013 normal colonoscopy. RLS (restless legs syndrome) 01/11/2016 Assessment & Plan (04/08/2021 4:06 PM CDT): Continue current dose of Requip. Obsessive compulsive personality disorder 2015 Assessment & Plan (09/03/2024 5:37 PM CDT): Controlled Continue current medications GERD (gastroesophageal reflux disease) 6 Assessment & Plan (09/03/2024 5:38 PM CDT): Controlled Continue GERD precautions and omeprazole. Assessment & Plan (04/08/2021 4:05 PM CDT): Controlled. Continue omeprazole and GERD precautions. Chronic nonseasonal allergic rhinitis due to anastacia maame 01/11/2016 Primary osteoarthritis involving multiple joints 01/11/2016 Assessment & Plan (09/29/2021 9:02 AM CDT): Begin Celebrex 200 mg daily. Assessment & Plan (04/08/2021 4:06 PM CDT): Hydrocodone p.r.n. Pain. Personal history of tobacco use 01/11/2016 Resolved Problems Problem Noted Date Diagnosed Date Resolved Date Posterior capsular opacification, left 10/17/2024 11/16/2024 Status post cataract extract ion of both eyes with insertion of intraocular lens 02/22/202310/17 Age-related nuclear cataract, left 02/22/2023 10/17/2024 S/P cataract extraction and insertion of intraocular lens, right 01/20/2023 02/22/2023 Age-related nuclear cataract, bilateral 12/14/2022 02/22/2023 Bipolar I disorder with depression, severe 09/29/2020 09/29/2021 Ganglion cyst of both hands 07/01/2020 09/29/2021 Overview (07/01/2020): PIP joints of left index and right little fingers Ataxia 02/26/2020 09/29/2021 Numbness of right hand 01/21/202009/29 Falls 01/21/2020 09/29/2021 Paresthesia of arm 08/20/2019 Depression 01/11/2016 06/23/2017 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 S/P hysterectomy 01/11/2016 09/29/2021 Overview (01/11/2016): 2001 for precancerous cells . Encounters Date Type Department Care Team Description 03/04/2025 Refill [facility] [place] - Primary Care [address] [place], [place] [id number] Lee Meza MD Primary osteoarthritis involving multiple joints; Lumbar degenerative disc disease 03/01/2025 Refill [facility] [place] - Primary Care [address] [place], [place] [id number] Lee Meza MD Primary osteoarthritis involving multiple joints; Lumbar degenerative disc disease 02/28/2025 Refill [facility] [place] - Primary Care [address] [place], [place] [id number] Lee Meza MD Primary osteoarthritis involving multiple joints; Lumbar degenerative disc disease 02/28/2025 Refill [facility] [place] - Primary Care [address] [place], [place] [id number] Gisella Cueto FNP YULI (generalized anxiety disorder); Obsessive compulsive personality disorder (HCC) 02/28/2025 Refill [facility] [place] - Primary Care [address] [place], [place] [id number] Jamal Gant MD Left shoulder pain, unspecified chronicity; Bronchitis 02/04/2025 Refill [facility] [place] - Primary Care [address] [place] [address] Jamal Gant MD Primary osteoarthritis involving multiple joints; Lumbar degenerative disc disease; Restless leg syndrome; RLS (restless legs syndrome) 01/30/2025 Refill [facility] [place] - Primary Care [address] [place] [address] Jamal Gant MD Restless leg syndrome; RLS (restless legs syndrome); Primary osteoarthritis involving multiple joints; Lumbar degenerative disc disease 01/07/2025 Refill [facility] [place] - Primary Care [address] [place] [address] Jamal Gant MD Primary osteoarthritis involving multiple joints; Lumbar degenerative disc disease 01/03/2025 Refill [facility] [place] - Primary Care [address] [place] [address] Jamal Gant MD Dizziness 01/01/2025 3:15 PM CDT Office Visit [facility] [place] - Primary Care [address] [place] [address] Rom GisellaJANELLE Cabral Chronic left-sided low back pain with left-sided sciatica (Primary Dx); Degeneration of intervertebral disc of lumbar region, unspecified whether pain present; Chronic left-sided thoracic back pain 01/01/2025 Travel 12/10/2024 Refill [facility] [place] - Primary Care [address] [place] [address] Jamal Gant MD Primary osteoarthritis involving multiple joints; Lumbar degenerative disc disease from Last 3 Months Immunizations Immunization Administration Dates Next Due Fluvirin 03/21/2017,05/17/2016 Influenza, injectable, MDCK, preservative free, quadrivalent (FLUCELVAX) 03/27/2019,03/22/2018 Influenza, injectable, MDCK, preservative free, trivalent (FLUCELVAX) 03/22/2018 MMR (M-M-R II) 05/04/2002 Moderna SARS-CoV-2 Vaccination 07/31/2021,2020,09/23/2020 Tdap (BOOSTRIX, ADACEL) 12/15/2016 influenza, injectable, quadr ivalent (AFLURIA/FLUZONE MDV) 03/21/2017 influenza, injectable, quadr ivalent, preservative free (AFLURIA/FLUARIX/FLULAVAL/FLUZONE) 07/21/2023,07/01/2020 zoster recombinant (SHINGRIX) 12/12/2018, 019 Family History Medical History Relation Name Comments Heart disease Father Diabetes type II Mother Stroke Mother Colon cancer Sister Diabetes Sister Relation Name Status Comments Father Mother Sister Social History Tobacco Use Types Packs/Day Years Used Date Smoking Tobacco: Former Cigarettes 1 10 008 - 2017 Smokeless Tobacco: Never Tobacco Cessation:Counseling Given: Not Answered Comments:quit in 2013 Alcohol Use Standard Drinks/Week Comments No 0 (1 standard drink = 0.6 oz pur e alcohol) [facility] Utilities Answer Date Recorded In the past 12 months has th e electric, gas, oil, or water company threatened to shut off services in your home? No 01/01/2025 PHQ-2 Answer Date Recorded PHQ-2 Score 2 09/03/2024 Hunger Vital Sign Answer Date Recorded Within the past 12 months, y ou worried that your food would run out before you got the money to buy more. Never true 01/02/20 Within the past 12 months, t he [...] any time in the past 12 m [facility], were you homeless or living in a residential (including now)? No 01/01/2025 Comments No Sex and Gender Information Value Date Recorded Sex Assigned at Not on file Legal Sex Female 8:00 PM CDT Gender Identity Not on file Sexual Orientation Not on file Last Filed Vital Signs Vital Sign Reading Time Taken Comments Blood Pressure 151/84 01/01/2025 3:30 PM CDT Pulse 82 01/01/2025 3:30 PM CDT Temperature 36.1 C (97 F) 12/13/2023 2:19 PM CDT Respiratory Rate 17 09/22/2020 11:13 AM CDT Oxygen Saturation 98% 01/01/2025 3:30 PM CDT Inhaled Oxygen Concentration - - Weight 47.6 kg (105 lb) 01/01/2025 3:30 PM CDT Height 167.6 cm (5' 6 ) 01/01/2025 3:30 PM CDT Body Mass Index 16.95 01/01/2025 3:30 PM CDT Plan of Treatment Health Maintenance Due Date Last Done Comments Medicare Annual Wellness 1960 Pneumococcal Vaccine: 50+ Years (1 of 2 - PCV) 1977 Colonoscopy 12/04/2022 12/04/2012 Mammogram 07/29/2024 07/29/2023, 03/0 09/2021, 07/22/2020, Additional history exists Influenza Vaccination (#1) 01/18/202507/21, 07/01/2020, 03/27/2019, Additional history exists COVID-19 Vaccine (2024- season) 2025 07/31/2021, 10/22/2020, 09/23/2020 Td, Tdap Vaccines Adult 12/15/2026 12/15/2016 Bone Density Scan (DXA Scan) 01/04/2027, 05/02/2017, 07/15/2011 RSV 60+ (1 - 1-dose 75+ series) 2033 Shingrix (ZOSTER RECOMBINANT) Completed 12/12/2018, 12/12/2018, 09/22/2018, Additional history exists HIB Vaccines Aged Out No longer eligi ble based on patient's age to complete this topic HPV Vaccines Aged Out No longer eligi ble based on patient's age to complete this topic Hepatitis A Vaccines Aged Out No long er eligible based on patient's age to complete this topic Hepatitis B Vaccines Aged Out No long er eligible based on patient's age to complete this topic IPV Vaccines Aged Out No longer eligi ble based on patient's age to complete this topic Meningococcal Vaccines Aged Out No lo nger eligible based on patient's age to complete this topic RSV Mab Nirsevimab (Beyfortus) <20 months Aged Out No longer eligibl e based on patient's age to complete this topic Rotavirus Vaccines Aged Out No longer eligible based on patient's age to complete this topic Medical Devices Implanted Type Area Proctologist Device Identifier Shelf Expiration Date Model / Serial / Lot Implant- 013 Implanted:04/05 (Quantity not on file) IMPLANT Bladder MEDTRONIC 3058 / [id number] / Description:[employer] BLADDE R STIMULATOR MODEL 3058 COMPATIBLE ONLY HEAD SCANS WITH SEND/RECEIVE COIL. Procedures Procedure Name Priority Date/Time Associated Diagnosis Comments BONE DENSITY AXIAL Routine 01/05/2024 1: 46 PM CDT Asymptomatic menopausal state MG SCREENING BILATERAL Routine 07/29/2023 12:52 PM STORE RECEIVER Encounter for screening mammogram for malignant neoplasm of breast from Last 3 Months or Most Recently Relevant to Health Maintenance Results * Bone density axial (01/05/2024 1:46 PM CDT) Anatomical Region Laterality Modality Breast N/A Other Narrative 01/06/2024 6:37 AM CDT EXAM: DEXA SCAN HISTORY: Bone density screening TECHNIQUE: GE COMPARISON: None FINDINGS: DEXA scan is performed on the lumbar spine. Quality of the study is good. BMD 1.116 grams per square centimeter. T-score -0.6. Z-score 1.2. DEXA scan is performed on the left femoral neck. Quality of the study is good. BMD 0.735 grams per square centimeter. T-score -2.2. Z-score -0.5. DEXA scan is performed on the left hip. Quality of the study is good. BMD 0.719 grams per square centimeter. T-score -2.3. Z-score -0.9. IMPRESSION: Location of lowest bone mineral density: Left hip T-score: -2.3 T-score values considered osteopenia by WHO classification. Recommendation: Follow up DEXA scan in 1-2 years. FRAX WHO FRACTURE RISK ASSESSMENT TOOL: THE 10-YEAR PROBABILITY OF FRACTURE PERCENTILE IS 10.9% FOR MAJOR OSTEOPOROTIC FRACTURE AND 2.0% FOR HIP FRACTURE. Procedure Note Christian Jose MD - 01/06/2024 EXAM: DEXA SCAN HISTORY: Bone density screening TECHNIQUE: GE COMPARISON: None FINDINGS: DEXA scan is performed on the lumbar spine. Quality of the study is good.BMD 1.116 grams per square centimeter. T-score -0.6. Z-score 1.2. DEXA scan is performed on the left femoral neck. Quality of the study isgood. BMD 0.735 grams per square centimeter. T-score -2.2. Z-score-0.5. DEXA scan is performed on the left hip. Quality of the study is good.BMD 0.719 grams per square centimeter. T-score -2.3. Z-score -0.9. IMPRESSION: Location of lowest bone mineral density: Left hip T-score: -2.3 T-score values considered osteopenia by WHO classification. Recommendation: Follow up DEXA scan in 1-2 years. FRAX WHO FRACTURE RISK ASSESSMENT TOOL: THE 10-YEAR PROBABILITY OFFRACTURE PERCENTILE IS 10.9% FOR MAJOR OSTEOPOROTIC FRACTURE AND 2.0% FORHIP FRACTURE. Jamal Gant MD [facility] MG ORDERABLES Final Result * Mammography Screening BILATERAL - Clinic Performed (07/29/2023 12:52 PM STORE RECEIVER) Anatomical Region Laterality Modality Breast Bilateral Mammography 07/29/2023 12:3 8 PM STORE RECEIVER Narrative 07/29/2023 1:02 PM STORE RECEIVER #[id number] - MG SCREENING BILATERAL BILATERAL DIGITAL SCREENING MAMMOGRAM 3D/2D WITH SYNTHETIC 2D WITH CAD: 07/29/2023 CLINICAL: Screening mammogram routine. Comparison is made to exams dated: 08/21/2021 mammogram, 07/22/2020 mammogram, and 07/05/2019 mammogram - [facility] [place]. There are scattered fibroglandular elements in both breasts that could obscure a lesion on mammography. This exam was evaluated with digital breast tomosynthesis. Current study was also evaluated with a Computer Aided Detection (CAD) system. No significant masses, calcifications, or other findings are seen in either breast. There has been no significant interval change. IMPRESSION: NEGATIVE There is no mammographic evidence of malignancy. A 1 year screening mammogram is recommended. Based on the NCI/NSABP BCRA tool, this patient's calculated 5-year risk for developing breast cancer is 1.1% and lifetime risk is 4.3%. The patient was notified of the results. Christian dang/will:07/29/2023 13:02:11 Delivery And Mail Sorter(s): Nohemi Pena)(M)(ARRT), [facility] [place] letter sent: Mammography Normal Mammogram BI-RADS: 1 Negative Procedure Note Christian Jose MD - 07/29/2023 #[id number] - MG SCREENING BILATERAL BILATERAL DIGITAL SCREENING MAMMOGRAM 3D/2D WITH SYNTHETIC 2D WITH CAD:07/29/2023 CLINICAL: Screening mammogram routine. Comparison is made to exams dated: 08/21/2021 mammogram, 07/22/2020mammogram, and [facility] [place]. There are scattered fibroglandular elements inboth breasts that could obscure a lesion on mammography. This exam was evaluated with digital breast tomosynthesis. Current studywas also evaluated with a Computer Aided Detection (CAD) system. No significant masses, calcifications, or other findings are seen ineither breast. There has been no significant interval change. IMPRESSION: NEGATIVE There is no mammographic evidence of malignancy. A 1 year screeningmammogram is recommended. Based on the NCI/NSABP BCRA tool, this patient's calculated 5-year riskfor developing breast cancer is 1.1% and lifetime risk is 4.3%. The patient was notified of the results. Christian dang/penrad:07/29/2023 13:02:11 Delivery And Mail Sorter(s): Blayne Pena(Gabriella)(M)(ARRT), [facility] [place] letter sent: Mammography Normal Mammogram BI-RADS: 1 Negative Oliva Walters [facility] CHILD CAREGIVER IMG MG ORDERABLES Final Resu lt from Last 3 Months or Most Recently Relevant to Health Maintenance Insurance [employer] MCR Care Teams Technical Administrator Relationship Specialty Start Date End Date Jaaml Gant MD [address] [place] [address] PCP - General Internal Medicine 10/31/20
--- OUTSIDE RECORDS SUMMARY | 2025-03-07 11:51 | XMS_ITS | Encounter Summary ---
Author Organization [facility] Address [address] [place] [address] Care Team Providers Care Sales Contractor Name Role Phone Jamal Gant MD Primary Care Provider [phone] Reason for Visit * Reason Comments Med Refill Encounter Details Date Type Department Care Team (Late st Contact Info) Description 02/28/2025 Refill [facility] [place] - Primary Care [address] [place] [address] Jamal Gant MD [address] [place], [place] [id number] Left shoulder pain, unspecified chronicity; Bronchitis Social History Tobacco Use Types Packs/Day Years Used Date Smoking Tobacco: Former Cigarettes 2017 Smokeless Tobacco: Never Comments:quit in 2013 Alcohol Use Standard Drinks/Week Comments No 0 (1 standard drink = 0.6 oz pur e alcohol) [facility] Utilities Answer Date Recorded In the past 12 months has [employer] electric, gas, oil, or water [employer] threatened to shut off services in your [...] any time in the past 12 m [facility], were you homeless or living in a chcf (including now)? No 01/01/2025 Comments No Sex and Gender Information Value Date Recorded Sex Assigned at Not on file Legal Sex Female 8:00 PM CDT Gender Identity Not on file Sexual Orientation Not on file documented as of this encounter Plan of Treatment Not on file documented as of this encounter Visit Diagnoses Diagnosis Left shoulder pain, unspecified chronicity Bronchitis Bronchitis, not specified as acute or chronic documented in this encounter Additional Health Concerns Health Status Noted Date Alive and well 12/13/2023 Assessment Noted Time PHQ-9 Depression Total Score: 2 09/04/19 25 1:32 PM CDT A fall risk assessment has been complete d for the patient 01/01/2025 3:29 PM CDT documented as of this encounter Care Teams Sales Contractor Relationship Specialty Start Date End Date Jamal Gant MD [address] [facility] [place] [address] PCP - General Internal Medicine 10/31/20 documented as of this encounter
--- OUTSIDE RECORDS SUMMARY | 2025-03-07 11:51 | XMS_ITS | Encounter Summary ---
Author Organization [facility] Address [address] [place] [address] Care Team Providers Care Account Support Specialist Name Role Phone Jamal Gant MD Primary Care Provider [phone] Reason for Visit * Reason Comments Med Refill Encounter Details Date Type Department Care Team (Late st Contact Info) Description 04/21/[facility] [address] [facility] [place] [address] Talib Benavides MD [address] [place] [address] Gastroesophageal reflux disease without esophagitis Social History Tobacco Use Types Packs/Day Years [...] have Coronavirus / COVID-19? No / Unsure 04/06/2021 1:46 PM CDT documented as of this encounter Plan of Treatment Not on file documented as of this encounter Visit Diagnoses Diagnosis Gastroesophageal reflux disease without esophagitis Esophageal reflux documented in this encounter Additional Health Concerns Health Status Noted Date Alive and well 04/06/2021 Assessment Noted Time A fall risk assessment has been complete d for the patient 04/06/2021 2:33 PM CDT documented as of this encounter Care Teams Account Support Specialist Relationship Specialty Start Date End Date Jamal Gant MD [address] [facility] [place] [address] PCP - General Internal Medicine 10/31/20 documented as of this encounter
--- OUTSIDE RECORDS SUMMARY | 2025-03-07 11:51 | XMS_ITS | Encounter Summary ---
Author Organization [facility] Address [address] [place] [address] Care Team Providers Care Roads Superintendent Name Role Phone Jamal Gant MD Primary Care Provider [phone] Encounter Details Date Type Department Care Team (Late st Contact Info) Description 08/14/2008 Orders Only [facility] Radiology [address] [place] [address] System, Provider Not In, [address] [place] [address] Social History Tobacco Use Types Packs/Day Years [...] Priority Date/Time Associated Diagnosis Comments OUTSIDE IMAGES 08/14/2008 2:01 PM FLIGHT DISPATCHER documented in this encounter Results * Outside Images (08/14/2008 2:01 PM FLIGHT DISPATCHER) Anatomical Region Laterality Modality N/A Radiographic Amena ging 08/14/2008 2:01 PM FLIGHT DISPATCHER Narrative 08/14/2008 2:01 PM FLIGHT DISPATCHER Historic images from [facility] exist and can be viewed by using the hyperlink to access [employer] pacs: X-Ray, Hip Unilateral Procedure Note System, Provider Not In - 06/12/2018 Historic images from [facility] exist and can be viewed by using theJetpaclink to access [employer] pacs: X-Ray, Hip Unilateral us Provider Not In System MD TREVIÑO GENERAL IMAGING OR DERABLES Final Result documented in this encounter Visit Diagnoses Not on filedocumented in this encounter Additional Health Concerns Infection Onset Date Last Indicated Resolved Time COVID-19 (rule out) 02/17/2021 02/17/2021 02/20/20 21 1:30 AM CDT documented as of this encounter Care Teams Roads Superintendent Relationship Specialty Start Date End Date Jamal Gant MD [address] [place] [id number] PCP - General Internal Medicine 10/31/20 documented as of this encounter
--- OUTSIDE RECORDS SUMMARY | 2025-03-07 11:51 | XMS_ITS | Encounter Summary ---
Author Organization [facility] Address [address] [place] [address] Care Team Providers Care Certified Pesticide Applicator Name Role Phone Jamal Gant MD Primary Care Provider [phone] Reason for Visit * Reason Comments Med Refill Encounter Details Date Type Department Care Team (Late st Contact Info) Description 08/07/2018 [facility] [address] [facility] [place] [address] Talib Benavides MD [address] [place] [address] Seasonal allergic rhinitis Social History Tobacco Use [...] encounter Miscellaneous Notes * Telephone Encounter - Jeannie Griffith - 08/07/2018 12:01 PM CST Last visit 07/24/2018 Next visit 08/21/2018 Labs up to date Refill ok D MEAT PACKING SUPERVISOR documented in this encounter Plan of Treatment Not on file documented as of this encounter Visit Diagnoses Diagnosis Seasonal allergic rhinitis Allergic rhinitis, cause unspecified documented in this encounter Additional Health Concerns Health Status Noted Date Alive and well 07/24/2018 Infection Onset Date Last Indicated Resolved Time COVID-19 (rule out) 02/17/2021 02/17/2021 02/20/20 21 1:30 AM CDT documented as of this encounter Care Teams Certified Pesticide Applicator Relationship Specialty Start Date End Date Jamal Gant MD [address] [place] [id number] PCP - General Internal Medicine 10/31/20 documented as of this encounter
--- OUTSIDE RECORDS SUMMARY | 2025-03-07 11:51 | XMS_ITS | Encounter Summary ---
Author Organization [facility] Address [address] [place] [address] Care Team Providers Care Loom Mechanic Name Role Phone Jamal Gant MD Primary Care Provider [phone] Encounter Details Date Type Department Care Team (Late st Contact Info) Description 12/20/2012 Orders Only [facility] Radiology [address] [place] [address] System, Provider Not In, [address] [place] [address] Social History Tobacco Use Types Packs/Day Years [...] Priority Date/Time Associated Diagnosis Comments OUTSIDE IMAGES 12/20/2012 9:50 AM CDT documented in this encounter Results * Outside Images (12/20/2012 9:50 AM CDT) Anatomical Region Laterality Modality N/A Radiographic Amena ging 12/20/2012 9:50 AM CDT Narrative 12/20/2012 9:50 AM CDT Historic images from [facility] exist and can be viewed by using the hyperlink to access [employer] pacs: KAREN SCREENING DIGITAL W/ CAD Procedure Note System, Provider Not In - 07/19/2020 Historic images from [facility] exist and can be viewed byusing the hyperlink to access [employer] pacs: KAREN SCREENING DIGITAL W/CAD us Provider Not In System MD TREVIÑO GENERAL IMAGING OR DERABLES Final Result documented in this encounter Visit Diagnoses Not on filedocumented in this encounter Additional Health Concerns Infection Onset Date Last Indicated Resolved Time COVID-19 (rule out) 02/17/2021 02/17/2021 02/20/20 21 1:30 AM CDT documented as of this encounter Care Teams Loom Mechanic Relationship Specialty Start Date End Date Jamal Gant MD [address] [place] [phone] PCP - General Internal Medicine 10/31/20 documented as of this encounter
--- OUTSIDE RECORDS SUMMARY | 2025-03-07 11:51 | XMS_ITS | Encounter Summary ---
Author Organization [facility] Address [address] [place] [address] Care Team Providers Care Aircraft Inspection Record Clerk Name Role Phone Jamal Gant MD Primary Care Provider [phone] Encounter Details Date Type Department Care Team (Late st Contact Info) Description 09/04/2007 Orders Only [facility] Radiology [address] [place] [address] System, Provider Not In, [address] [place] [address] Social History Tobacco Use Types Packs/Day Years [...] Priority Date/Time Associated Diagnosis Comments OUTSIDE IMAGES 09/04/2007 3:00 PM CDT documented in this encounter Results * Outside Images (09/04/2007 3:00 PM CDT) Anatomical Region Laterality Modality N/A Radiographic Amena ging 09/04/2007 3:00 PM CDT Narrative 09/04/2007 3:00 PM CDT Historic images from [facility] exist and can be viewed by using the hyperlink to access [employer] pacs: chest, two views, frontal and lateral Procedure Note System, Provider Not In - 06/14/2018 Historic images from [facility] exist and can be viewed by using theIntegration Managementlink to access [employer] pacs: chest, two views, frontal andlateral us Provider Not In System MD TREVIÑO GENERAL IMAGING OR DERABLES Final Result documented in this encounter Visit Diagnoses Not on filedocumented in this encounter Additional Health Concerns Infection Onset Date Last Indicated Resolved Time COVID-19 (rule out) 02/17/2021 02/17/2021 02/20/20 21 1:30 AM CDT documented as of this encounter Care Teams Aircraft Inspection Record Clerk Relationship Specialty Start Date End Date Jamal Gant MD [address] [phone] PCP - General Internal Medicine 10/31/20 documented as of this encounter
--- OUTSIDE RECORDS SUMMARY | 2025-03-07 11:51 | XMS_ITS | Encounter Summary ---
Author Organization [facility] Address [address] [place] [address] Care Team Providers Care Prop And Scenery Maker Name Role Phone Jamal Gant MD Primary Care Provider [phone] Reason for Visit * Reason Comments Med Refill Encounter Details Date Type Department Care Team (Late st Contact Info) Description 10/20/2016 Refill [facility] [place] - Primary Care [address] [place], [place] [id number] Talib Benavides MD [address] [facility] [place] [address] Muscle spasm Social History Tobacco Use Types [...] as of this encounter Visit Diagnoses Diagnosis Muscle spasm Spasm of muscle documented in this encounter Additional Health Concerns Infection Onset Date Last Indicated Resolved Time COVID-19 (rule out) 02/17/2021 02/17/2021 02/20/20 21 1:30 AM CDT documented as of this encounter Care Teams Prop And Scenery Maker Relationship Specialty Start Date End Date Jamal Gant MD [address] [place] [address] PCP - General Internal Medicine 10/31/20 documented as of this encounter
--- OUTSIDE RECORDS SUMMARY | 2025-03-07 11:51 | XMS_ITS | Encounter Summary ---
Author Organization [facility] Address [address] [place] [address] Care Team Providers Care Clinical Admissions Manager Name Role Phone Jamal Gant MD Primary Care Provider Reason for Visit * Reason Comments Med Refill Encounter Details Date Type Department Care Team (Late st Contact Info) Description 03/06/2020 [facility] [address] [facility] [place] [address] Talib Benavides MD [address] [place] [address] Muscle spasm; Bronchitis; Pain Social History Tobacco Use Types Packs/Day [...] have Coronavirus / COVID-19? No / Unsure 02/26/2020 9:52 AM CDT documented as of this encounter Miscellaneous Notes * Telephone Encounter - Talib Benavides MD - 03/12/2020 2:24 PM CDT Refused. * Telephone Encounter - Yovana Newsome LPN - 03/10/2020 4:23 PM CDT Patient received refills 14 days ago. It is too soon documented in this encounter Plan of Treatment Not on file documented as of this encounter Visit Diagnoses Diagnosis Muscle spasm Spasm of muscle Bronchitis Bronchitis, not specified as acute or chronic Pain Generalized pain documented in this encounter Additional Health Concerns Health Status Noted Date Alive and well 12/26/2019 Infection Onset Date Last Indicated Resolved Time COVID-19 (rule out) 02/17/2021 02/17/2021 02/20/20 1:30 AM CDT Assessment Noted Time A fall risk assessment has been complete d for the patient 02/26/2020 2:40 PM CDT documented as of this encounter Care Teams Clinical Admissions Manager Relationship Specialty Start Date End Date Jamal Gant MD [address] [place] [address] PCP - General Internal Medicine 10/31/20 documented as of this encounter
--- OUTSIDE RECORDS SUMMARY | 2025-03-07 11:51 | XMS_ITS | Encounter Summary ---
Author Organization [facility] Address [address] [place] [address] Care Team Providers Care File Keeper Name Role Phone Jamal Gant MD Primary Care Provider Encounter Details Date Type Department Care Team (Late st Contact Info) Description 06/16/2015 Orders Only [facility] Radiology [address] [place] [address] System, Provider Not In, [address] [place] [address] Social History Tobacco Use Types Packs/Day Years [...] Priority Date/Time Associated Diagnosis Comments OUTSIDE IMAGES 06/16/2015 9:54 AM SENIOR BUSINESS BROKER documented in this encounter Results * Outside Images (06/16/2015 9:54 AM SENIOR BUSINESS BROKER) Anatomical Region Laterality Modality N/A Radiographic Amena ging 06/16/2015 9:54 AM SENIOR BUSINESS BROKER Narrative 06/16/2015 9:54 AM SENIOR BUSINESS BROKER Historic images from [facility] exist and can be viewed by using the hyperlink to access [facility] pacs: KAREN SCREENING DIGITAL W/ CAD Procedure Note System, Provider Not In - 07/16/2020 Historic images from [facility] exist and can be viewed byusing the hyperlink to access [facility] pacs: KAREN SCREENING DIGITAL W/CAD us Provider Not In System MD TREVIÑO GENERAL IMAGING OR DERABLES Final Result documented in this encounter Visit Diagnoses Not on filedocumented in this encounter Additional Health Concerns Infection Onset Date Last Indicated Resolved Time COVID-19 (rule out) 02/17/2021 02/17/2021 02/20/20 21 1:30 AM CDT documented as of this encounter Care Teams File Keeper Relationship Specialty Start Date End Date Jamal Gant MD [address] [place] [phone] PCP - General Internal Medicine 10/31/20 documented as of this encounter
--- OUTSIDE RECORDS SUMMARY | 2025-03-07 11:51 | XMS_ITS | Encounter Summary ---
Author Organization [facility] Address [address] [address] Care Team Providers Care Supervisor Tan Room Name Role Phone Jamal Gant MD Primary Care Provider [phone] Encounter Details Date Type Department Care Team (Late st Contact Info) Description 08/14/2008 Orders Only [facility] Radiology [address] [place] [address] System, Provider Not In, [address] [place] [address] Social History Tobacco Use Types Packs/Day Years [...] Date/Time Associated Diagnosis Comments OUTSIDE IMAGES 08/14/2008 12:00 AM DECK MECHANIC documented in this encounter Results * Outside Images (08/14/2008 12:00 AM DECK MECHANIC) Anatomical Region Laterality Modality N/A Radiographic Amena ging 08/14/2008 Narrative 08/14/2008 12:00 AM DECK MECHANIC Historic images from [facility] exist and can be viewed by using the hyperlink to access [employer] pacs: X-Ray, Spine, Lumbosacral Procedure Note System, Provider Not In - 06/12/2018 Historic images from [facility] exist and can be viewed by using theKingspokelink to access [employer] pacs: X-Ray, Spine, Lumbosacral us Provider Not In System MD TREVIÑO GENERAL IMAGING OR DERABLES Final Result documented in this encounter Visit Diagnoses Not on filedocumented in this encounter Additional Health Concerns Infection Onset Date Last Indicated Resolved Time COVID-19 (rule out) 02/17/2021 02/17/2021 02/20/20 21 1:30 AM CDT documented as of this encounter Care Teams Supervisor Tan Room Relationship Specialty Start Date End Date Jamal Gant MD [address] [place] [phone] PCP - General Internal Medicine 10/31/20 documented as of this encounter
--- OUTSIDE RECORDS SUMMARY | 2025-03-07 11:51 | XMS_ITS | Encounter Summary ---
Author Organization [facility] Address [address] [place] [address] Care Team Providers Care Clinical Trial Specialist Name Role Phone Jamal Gant MD Primary Care Provider [phone] Reason for Visit * Reason Comments Med Refill Encounter Details Date Type Department Care Team (Late st Contact Info) Description 07/05/2024 Refill [facility] [place] - Primary Care [address] [place] [address] Jamal Gant MD [address] [place] [address] Bronchitis Social History Tobacco Use Types Packs/Day [...] as of this encounter Visit Diagnoses Diagnosis Bronchitis Bronchitis, not specified as acute or chronic documented in this encounter Additional Health Concerns Health Status Noted Date Alive and well 12/13/2023 Assessment Noted Time A fall risk assessment has been complete d for the patient 12/13/2023 2:15 PM CDT documented as of this encounter Care Teams Clinical Trial Specialist Relationship Specialty Start Date End Date Jamal Gant MD [address] [address] PCP - General Internal Medicine 10/31/20 documented as of this encounter
--- OUTSIDE RECORDS SUMMARY | 2025-03-07 11:51 | XMS_ITS | Encounter Summary ---
Author Organization [facility] Address [address] [place] [address] Care Team Providers Care Art Handler Name Role Phone Jamal Gant MD Primary Care Provider [phone] Reason for Visit * Reason Comments Med Refill Encounter Details Date Type Department Care Team (Late st Contact Info) Description 12/14/2022 Refill [facility] [place] - Primary Care [address] [place] [address] Jamal Gant MD [address] [place], [place] [id number] Left shoulder pain, unspecified chronicity Social History [...] Exposure Response Date Recorded In the last 10 days, have yo u been in contact with someone who was confirmed or suspected to have Coronavirus/COVID-19? No / Unsure 12/14/2022 1:59 PM CDT documented as of this encounter [...] documented as of this encounter Care Teams Art Handler Relationship Specialty Start Date End Date Jamal Gant MD [address] [place] [id number] PCP - General Internal Medicine 10/31/20 documented as of this encounter
--- OUTSIDE RECORDS SUMMARY | 2025-03-07 11:51 | XMS_ITS | Encounter Summary ---
Author Organization [facility] Address [address] [place] [address] Care Team Providers Care Hr Operations Advisor Name Role Phone Jamal Gant MD Primary Care Provider [phone] Reason for Visit * Reason Comments Med Refill Encounter Details Date Type Department Care Team (Late st Contact Info) Description 03/21/2018 [facility] [address] [facility] [place] [address] Talib Benavides MD [address] [facility] [place] [address] Chronic nonseasonal allergic rhinitis due to pollen; Muscle spasm; Nausea; Motion sickness, initial encounter Social History Tobacco Use Types Packs/Day Years [...] as of this encounter Visit Diagnoses Diagnosis Chronic nonseasonal allergic rhinitis due to pollen Muscle spasm Spasm of muscle Nausea Nausea alone Motion sickness, initial encounter documented in this encounter Additional Health Concerns Health Status Noted Date Alive and well 03/21/2018 Infection Onset Date Last Indicated Resolved Time COVID-19 (rule out) 02/17/2021 02/17/2021 02/20/20 21 1:30 AM CDT documented as of this encounter Care Teams Hr Operations Advisor Relationship Specialty Start Date End Date Jamal Gant MD [address] [place] [address] PCP - General Internal Medicine 10/31/20 documented as of this encounter
--- OUTSIDE RECORDS SUMMARY | 2025-03-07 11:51 | XMS_ITS | Encounter Summary ---
Author Organization [facility] Address [address] [place] [address] Care Team Providers Care Analysis Analyst Name Role Phone Jamal Gant MD Primary Care Provider [phone] Reason for Visit * Reason Comments Med Refill Encounter Details Date Type Department Care Team (Late st Contact Info) Description 05/13/[address] [facility] [address] [facility] [place] [address] Talib Benavides MD [address] [facility] [place] [address] Pain Social History Tobacco Use Types Packs/Day [...] documented as of this encounter Care Teams Analysis Analyst Relationship Specialty Start Date End Date Jamal Gant MD [address] [place] [id number] PCP - General Internal Medicine 10/31/20 documented as of this encounter
--- OUTSIDE RECORDS SUMMARY | 2025-03-07 11:51 | XMS_ITS | Encounter Summary ---
Author Organization [facility] Address [address] [place] [address] Care Team Providers Care Pipe Fitter Soft Copper Name Role Phone Jamal Gant MD Primary Care Provider [phone] Reason for Referral * (Routine) - Closed Specialty Diagnoses / Procedures Referred By Contac t Referred To Contact Procedures Mammography Screening BILATERAL [facility] [address] [place] [address] Phone: tel: fax: Referral ID Status Reason Start Date Expiration Date Visits Re quested Visits Authorized [id number] Closed 11/30/2016 11/30/2018 1 1 Encounter Details Date Type Department Care Team (Late st Contact Info) Description 11/30/2016 Orders Only [facility] [address] [place] [address] Masoud Tyler MD [address] [place] [address] Social History Tobacco Use Types Packs/Day Years [...] Procedure Name Priority Date/Time Associated Diagnosis Comments MG SCREENING BILATERAL Routine 11/29/2016 documented in this encounter Results * Mammography Screening BILATERAL (11/29/2016) Anatomical Region Laterality Modality Breast Bilateral Mammography us Historical Provider MD HUDSON PACK ORDERABLES Edited Result - Final documented in this encounter Visit Diagnoses Not on filedocumented in this encounter Additional Health Concerns Infection Onset Date Last Indicated Resolved Time COVID-19 (rule out) 02/17/2021 02/17/2021 02/20/20 21 1:30 AM CDT documented as of this encounter Care Teams Pipe Fitter Soft Copper Relationship Specialty Start Date End Date Jamal Gant MD [address] [place] [id number] PCP - General Internal Medicine 10/31/20 documented as of this encounter
--- OUTSIDE RECORDS SUMMARY | 2025-03-07 11:51 | XMS_ITS | Encounter Summary ---
Author Organization [facility] Address [address] [place] [address] Care Team Providers Care Credit Risk Manager Name Role Phone Jamal Gant MD Primary Care Provider [phone] Reason for Visit * Reason Comments Med Refill Encounter Details Date Type Department Care Team (Late st Contact Info) Description 11/04/2020 Refill [facility] - Primary Care [address] [facility] [place] [place] [address] Talib Benavides MD [address] [place] [address] Social History Tobacco Use Types Packs/Day Years [...] have Coronavirus / COVID-19? Unable to assess 11/03/2020 7:38 AM CDT documented as of this encounter Plan [...] documented as of this encounter Care Teams Credit Risk Manager Relationship Specialty Start Date End Date Jamal Gant MD [address] [place] [id number] PCP - General Internal Medicine 10/31/20 documented as of this encounter
--- OUTSIDE RECORDS SUMMARY | 2025-03-07 11:51 | XMS_ITS | Encounter Summary ---
Author Organization [facility] Address [address] [place] [address] Care Team Providers Care Surgery Nurse Name Role Phone Jamal Gant MD Primary Care Provider [phone] Reason for Visit * Reason Comments Med Refill Encounter Details Date Type Department Care Team (Late st Contact Info) Description 12/30/2021 Refill [facility] [place] - Primary Care [address] [place] [address] Jamal Gant MD [address] [address] [place] [address] Lumbar radiculopathy; Pain Social History Tobacco Use Types Packs/Day [...] Thoracic or lumbosacral neuritis or radiculitis, unspecified Pain Generalized pain documented in this encounter Additional Health Concerns Health Status Noted Date Alive and well 09/29/2021 Assessment Noted Time A fall risk assessment has been complete d for the patient 09/29/2021 8:16 AM CDT documented as of this encounter Care Teams Surgery Nurse Relationship Specialty Start Date End Date Jamal Gant MD [address] [facility] [place] [address] PCP - General Internal Medicine 10/31/20 documented as of this encounter
--- OUTSIDE RECORDS SUMMARY | 2025-03-07 11:51 | XMS_ITS | Encounter Summary ---
Author Organization [facility] Address [address] [place] [address] Care Team Providers Care Production Dispatcher Name Role Phone Jamal Gant MD Primary Care Provider [phone] Encounter Details Date Type Department Care Team (Late st Contact Info) Description 02/26/2020 Orders Only [facility] [address] [facility] [address] [place] [address] Rolf Herrera MD [address] [place] [address] Social History Tobacco Use Types Packs/Day Years [...] documented as of this encounter Care Teams Production Dispatcher Relationship Specialty Start Date End Date Jamal Gant MD [address] [facility] [place] [address] PCP - General Internal Medicine 10/31/20 documented as of this encounter
--- OUTSIDE RECORDS SUMMARY | 2025-03-07 11:51 | XMS_ITS | Encounter Summary ---
Author Organization [facility] Address [address] [place] [address] Care Team Providers Care Conveyor Line Battery Charger Name Role Phone Jamal Gant MD Primary Care Provider Encounter Details Date Type Department Care Team (Late st Contact Info) Description 07/27/2011 Orders Only [facility] Radiology [address] [place] [address] System, Provider Not In, [address] [place] [address] Social History Tobacco Use Types Packs/Day Years [...] Priority Date/Time Associated Diagnosis Comments OUTSIDE IMAGES 07/27/2011 3:37 PM BUILDING MOVER documented in this encounter Results * Outside Images (07/27/2011 3:37 PM BUILDING MOVER) Anatomical Region Laterality Modality N/A Radiographic Amena ging 07/27/2011 3:37 PM BUILDING MOVER Narrative 07/27/2011 3:37 PM BUILDING MOVER Historic images from [facility] exist and can be viewed by using the hyperlink to access [employer] p[employer]: KAREN SCREENING DIGITAL W/ CAD Procedure Note System, Provider Not In - 07/13/2020 Historic images from [facility] exist and can be viewed byusing the hyperlink to access [employer] p[employer]: KAREN SCREENING DIGITAL W/CAD us Provider Not In System MD TREVIÑO GENERAL IMAGING OR DERABLES Final Result documented in this encounter Visit Diagnoses Not on filedocumented in this encounter Additional Health Concerns Infection Onset Date Last Indicated Resolved Time COVID-19 (rule out) 02/17/2021 02/17/2021 02/20/20 21 1:30 AM CDT documented as of this encounter Care Teams Conveyor Line Battery Charger Relationship Specialty Start Date End Date Jamal Gant MD [address] [place] [id number] PCP - General Internal Medicine 10/31/20 documented as of this encounter
--- OUTSIDE RECORDS SUMMARY | 2025-03-07 11:52 | XMS_ITS | Encounter Summary ---
Author Organization [facility] Address [address] [place] [address] Care Team Providers Care Various Exceptionalities Teacher Name Role Phone Jamal Gant MD Primary Care Provider Reason for Visit * Reason Comments Med Refill Encounter Details Date Type Department Care Team (Late st Contact Info) Description 10/11/2022 Refill [facility] - Primary Care [address] [place] [address] Jamal Gant MD [address] [place] [address] [address] Pain Social History Tobacco Use Types [...] Telephone Encounter - Urvashi Santiago LPN - 10/11/2022 8:34 AM CDT Last filled 4-4. Too soon to refill. documented in this [...] documented as of this encounter Care Teams Various Exceptionalities Teacher Relationship Specialty Start Date End Date Jamal Gant MD [address] [place] [id number] PCP - General Internal Medicine 10/31/20 documented as of this encounter
--- OUTSIDE RECORDS SUMMARY | 2025-03-07 11:52 | XMS_ITS | Encounter Summary ---
Author Organization [facility] Address [address] [place] [address] Care Team Providers Care Motor Racer Name Role Phone Jamal Gant MD Primary Care Provider [phone] Encounter Details Date Type Department Care Team (Late st Contact Info) Description 09/22/2020 Orders Only [facility] - Primary Care [address] [place] [address] Patricia Dewey Chronic neck pain (Primary Dx); Chronic bilateral low back pain with right-sided sciatica; Depression, unspecified depression type Social History Tobacco Use Types Packs/Day Years [...] have Coronavirus / COVID-19? No / Unsure 09/22/2020 10:44 AM CDT documented as of this encounter Plan of Treatment Not on file documented as of this encounter Visit Diagnoses Diagnosis Chronic neck pain- Primary Cervicalgia Chronic bilateral low back pain with right-sided sciatica Depression, unspecified depression type documented in this encounter Additional Health Concerns Health Status Noted Date Alive and well 09/22/2020 Infection Onset Date Last Indicated Resolved Time COVID-19 (rule out) 02/17/2021 02/17/2021 02/20/20 21 1:30 AM CDT Assessment Noted Time A fall risk assessment has been complete d for the patient 09/22/2020 11:14 AM CDT documented as of this encounter Care Teams Motor Racer Relationship Specialty Start Date End Date Jamal Gant MD [address] [place] [id number] PCP - General Internal Medicine 10/31/20 documented as of this encounter
--- OUTSIDE RECORDS SUMMARY | 2025-03-07 11:52 | XMS_ITS | Encounter Summary ---
Author Organization [facility] Address [address] [place] [address] Care Team Providers Care Meat Loiner Name Role Phone Jamal Gant MD Primary Care Provider [phone] Reason for Visit * Reason Comments Med Refill Encounter Details Date Type Department Care Team (Late st Contact Info) Description 10/08/2022 Refill [facility] [place] - Primary Care [address] [place] [address] Jamal Gant MD [address] [place], [place] [id number] Lumbar radiculopathy Social History Tobacco Use Types [...] documented as of this encounter Care Teams Meat Loiner Relationship Specialty Start Date End Date Jamal Gant MD [address] [facility] [place] [address] PCP - General Internal Medicine 10/31/20 documented as of this encounter
--- OUTSIDE RECORDS SUMMARY | 2025-03-07 11:52 | XMS_ITS | Encounter Summary ---
Author Organization [facility] Address [address] [place] [address] Care Team Providers Care Transaction Manager Name Role Phone Jamal Gant MD Primary Care Provider [phone] Reason for Visit * Reason Comments Med Refill Encounter Details Date Type Department Care Team (Late st Contact Info) Description 08/22/2020 Refill [facility] [place] - Urgent Care [address] [place], [place] [phone] Chloe Sommers FNP [address] [place] [address] Left shoulder pain, unspecified chronicity; Acute left-sided thoracic back pain Social History Tobacco Use Types Packs/Day Years [...] have Coronavirus / COVID-19? No / Unsure 08/18/2020 10:34 AM CRM CAMPAIGN MANAGER documented as of this encounter Miscellaneous Notes * Telephone Encounter - Edin Hahn RN - 08/22/2020 12:17 PM CST Medication refill request CAMPAIGN MANAGER documented in this encounter Plan of Treatment Not on file documented as of this encounter Visit Diagnoses Diagnosis Left shoulder pain, unspecified chronicity Acute left-sided thoracic back pain documented in this encounter Additional Health Concerns Health Status Noted Date Alive and well 08/18/2020 Infection Onset Date Last Indicated Resolved Time COVID-19 (rule out) 02/17/2021 02/17/2021 02/20/20 21 1:30 AM CDT Assessment Noted Time A fall risk assessment has been complete d for the patient 08/18/2020 11:24 AM CRM CAMPAIGN MANAGER documented as of this encounter Care Teams Transaction Manager Relationship Specialty Start Date End Date Jamal Gant MD [address] [place] [address] PCP - General Internal Medicine 10/31/20 documented as of this encounter
--- OUTSIDE RECORDS SUMMARY | 2025-03-07 11:52 | XMS_ITS | Encounter Summary ---
Author Organization [facility] Address [address] [place] [address] Care Team Providers Care Glove Printer Name Role Phone Jamal Gant MD Primary Care Provider [phone] Reason for Visit * Reason Comments Med Refill Encounter Details Date Type Department Care Team (Late st Contact Info) Description 10/24/2022 Refill [facility] [place] - Primary Care [address] [place] [address] Jamal Gant MD [address] [place], [place] [phone] Lumbar degenerative disc disease; DDD (degenerative disc disease), cervical; Primary osteoarthritis involving multiple joints Social History Tobacco Use Types Packs/Day Years [...] of this encounter Visit Diagnoses Diagnosis Lumbar degenerative disc disease DDD (degenerative disc disease), cervical Degeneration of cervical intervertebral disc Primary osteoarthritis involving multiple joints documented in this encounter Additional Health Concerns Health Status Noted Date Alive and well 01/19/2022 Assessment Noted Time A fall risk assessment has been complete d for the patient 01/19/2022 6:11 PM CDT documented as of this encounter Care Teams Glove Printer Relationship Specialty Start Date End Date Jamal Gant MD [address] [facility] [place] [address] PCP - General Internal Medicine 10/31/20 documented as of this encounter
--- OUTSIDE RECORDS SUMMARY | 2025-03-07 11:52 | XMS_ITS | Encounter Summary ---
Author Organization [facility] Address [address] [place] [address] Care Team Providers Care Artist Blacksmith Name Role Phone Jamal Gant MD Primary Care Provider Reason for Visit * Reason Comments Med Refill Encounter Details Date Type Department Care Team (Late st Contact Info) Description 12/22/2022 Refill [facility] - Primary Care [address] [place] [address] Jamal Gant MD [address] [place] [address] [address] Pain; Gastroesophageal reflux disease without esophagitis; Lumbar degenerative disc disease; DDD (degenerative disc disease), cervical; Primary osteoarthritis involving multiple joints; Lumbar radiculopathy Social History Tobacco Use Types [...] PM CDT documented as of this encounter Miscellaneous Notes * Telephone Encounter - Urvashi Santiago LPN - 12/22/2022 11:16 AM CDT Patient has an appointment January 04. documented in this encounter Plan of Treatment Not on file documented as of this encounter Visit Diagnoses Diagnosis Pain Generalized pain Gastroesophageal reflux disease without esophagitis Esophageal reflux Lumbar degenerative disc disease DDD (degenerative disc disease), cervical Degeneration of cervical intervertebral disc Primary osteoarthritis involving multiple joints Lumbar radiculopathy Thoracic or lumbosacral neuritis or radiculitis, unspecified documented in this encounter Additional Health Concerns Health Status Noted Date Alive and well 01/19/2022 Assessment Noted Time A fall risk assessment has been complete d for the patient 01/19/2022 6:11 PM CDT documented as of this encounter Care Teams Artist Blacksmith Relationship Specialty Start Date End Date Jamal Gant MD [address] [place] [id number] PCP - General Internal Medicine 10/31/20 documented as of this encounter
--- OUTSIDE RECORDS SUMMARY | 2025-03-07 11:52 | XMS_ITS | Encounter Summary ---
Author Organization [facility] Address [address] [place] [address] Care Team Providers Care Bistro Attendant Name Role Phone Jamal Gant MD Primary Care Provider [phone] Reason for Visit * Reason Comments Med Refill Encounter Details Date Type Department Care Team (Late st Contact Info) Description 06/21/2023 Refill [facility] [place] - Primary Care [address] [place] [address] Jamal Gant MD [address] [place], [place] [phone] YULI (generalized anxiety disorder); Obsessive compulsive personality disorder (HCC); Pain Social History Tobacco Use Types Packs/Day [...] encounter Miscellaneous Notes * Telephone Encounter - Diana Silverio LPN - 06/21/2023 3:28 PM CST Last seen aug No upcoming appointments. TH EVALUATOR documented in this encounter Plan of Treatment Not on file documented as of this encounter Visit Diagnoses Diagnosis YULI (generalized anxiety disorder) Generalized anxiety disorder Obsessive compulsive personality disorder (HCC) Pain Generalized pain documented in this encounter Additional Health Concerns Health Status Noted Date Alive and well 02/22/2023 Assessment Noted Time A fall risk assessment has been complete d for the patient 02/22/2023 1:15 PM CDT documented as of this encounter Care Teams Bistro Attendant Relationship Specialty Start Date End Date Jamal Gant MD [address] [place] [id number] PCP - General Internal Medicine 10/31/20 documented as of this encounter
--- NOTE | 2025-03-07 12:06 | XR_ITS ---
WS: [id number] XR chest 1V portable [id number] REASON FOR EXAM: chest pain FINDINGS: Moderate tortuosity of the thoracic aorta with normal heart size. Calcified granulomas disease bilaterally. No acute pulmonary parenchymal or pleural abnormality. Significant levoscoliosis of the thoracolumbar junction. Severe osteoarthritis in the right glenohumeral joint. XR/XR chest 1V portable [id number] IMPRESSION: No acute chest abnormality.
--- NOTE | 2025-03-07 12:10 | W.ED.CHESTPA ---
HPI - Chest Pain General: Chief Complaint: Chest Pain Stated Complaint: CP Feet Swelling Time Seen by Provider: 03/07/25 12:06 History of Present Illness: 64-year-old female presents to the emergency room with complaint of chest pain she fell last week and hit her chest she had a ground-level mechanical fall. Pain is reproducible with movement with deep inspiration with palpation. She generally has felt weak she also noticed little bit of swelling in her legs. No vomiting no diarrhea did not strike her head. No hematochezia melena hematemesis coffee-ground emesis no abdominal pain. Associated symptoms: Deny abdominal pain, dyspnea or fever(s) Related Data Home Medications ?Medication ?Instructions ?Recorded ?Confirmed albuterol sulfate 90 mcg/actuation 1 puff inhalation Q6H PRN 03/07/25 03/07/25 aerosol inhaler Shortness Of Breath Or Wheezing baclofen 20 mg tablet 20 mg PO BID 03/07/25 03/07/25 celecoxib 200 mg capsule 200 mg PO DAILY 03/07/25 03/07/25 diclofenac sodium 1 % topical gel 2 g topical QID 03/07/25 03/07/25 fluticasone propionate 50 2 spray intranasal DAILY 03/07/25 03/07/25 mcg/actuation nasal spray,suspension hydrocodone 5 mg-acetaminophen 325 1 tab PO TID 03/07/25 03/07/25 mg tablet meclizine 25 mg tablet 25 mg PO TID PRN Dizziness Or 03/07/25 03/07/25 Vertigo montelukast 10 mg tablet 10 mg PO BEDTIME 03/07/25 03/07/25 ropinirole 1 mg tablet 1 mg PO QPM 03/07/25 03/07/25 sertraline 100 mg tablet 100 mg PO DAILY 03/07/25 03/07/25 triamcinolone acetonide 0.1 % 1 applic topical BID 03/07/25 03/07/25 topical cream Allergies Allergy/AdvReac Type Severity Reaction Status Date / Time acetaminophen (From Tylenol) Allergy Unknown Verified 03/07/25 11:54 codeine Allergy Unknown Verified 03/07/25 11:54 Iodinated Contrast Media Allergy Unknown Verified 03/07/25 11:54 Review of Systems Const: Denies: fever(s) or chills Card: Reports: chest pain Resp: Denies: dyspnea GI: Denies: abdominal pain : Denies: dysuria, urinary frequency or urinary urgency Musc: Denies: neck pain or back pain Skin/Breast: Denies: rash Physical Exam Const: GENERAL APPEARANCE: cooperative ORIENTATION/CONSCIOUSNESS: Yes awake HENMT: COMMON NORMALS: normocephalic, atraumatic and hearing grossly normal bilaterally HEAD & SCALP: normocephalic and atraumatic Chest: OTHER: Reproducible chest pain with palpation on the right lower side of the chest in the right lower sternum no ecchymosis noted. Resp: COMMON NORMALS: normal respiratory effort, No retractions, No use of accessory muscles and clear to auscultation bilaterally AUSCULTATION: clear to auscultation bilaterally Cardio: COMMON NORMALS: regular rate, regular rhythm and No murmurs present (Cardio) RATE: regular rate RHYTHM: regular rhythm GI: COMMON NORMALS: Soft to palpation and No hepatosplenomegaly present AUSCULTATION: Yes normoactive bowel sounds PALPATION: Yes Soft to palpation, No Tenderness to palpation present (GI), No Guarding due to palpation present (GI) and Yes No hepatosplenomegaly present Extremity: COMMON NORMALS: normal to inspection, capillary refill normal, no clubbing, cyanosis or edema, no calf tenderness and no pedal edema Skin: COMMON NORMALS: no rashes or lesions noted GENERAL SKIN EXAM: no rashes or lesions noted Course Vital Signs: Vital signs: Vital Signs Temperature 97.6 F 03/07/25 11:45 Pulse Rate 71 03/07/25 15:16 Respiratory Rate 22 H 03/07/25 15:16 Blood Pressure 157/81 03/07/25 15:16 Pulse Oximetry 98 03/07/25 15:16 Oxygen Delivery Me thod Room Air 03/07/25 11:45 MDM - Chest Pain Medical Decision Making Think her chest comfort is due to the fall. Her troponins are negative despite having chest pain for a week EKG is normal. She has a very mild elevation of potassium. Patient was given IV fluids. Patient has normocytic normochromic anemia. She denied any hematochezia melena hematemesis coffee-ground emesis no history of anemia in the past. Her vital signs are all stable at this time anemia workup ordered and we will set her up for outpatient transfusion of 1 unit of blood tomorrow. She should follow-up with her primary care doctor to further evaluate her anemia and review of the anemia labs that were ordered in the emergency room today Medical Records I reviewed the patient's medical records. Lab Data I reviewed the patient's lab results. 03/07/25 12:08 03/07/25 12:08 Radiology Impressions Chest X-Ray 03/07/25 12:06 IMPRESSION: No acute chest abnormality. Laboratory Results WBC 4.17 10^3/uL (3.29-11.43) 03/07/25 12:08 RBC 2.64 10^6/uL (3.85-5.65) L 03/07/25 12:08 Hgb 7.70 g/dL (11.27-16.99) L 03/07/25 12:08 Hct 24.4 % (36-47) L 03/07/25 12:08 MCV 92.4 fl (85-98) 03/07/25 12:08 MCH 29.2 pg (27-33) 03/07/25 12:08 MCHC 31.6 g/dL (30-55) 03/07/25 12:08 RDW 15.8 % (12.1-15.1) H 03/07/25 12:08 Plt Count 208 10^3/cmm (157-399) 03/07/25 12:08 MPV 9.6 fL (7.4-10.4) 03/07/25 12:08 Neut % (Auto) 53.7 % 03/07/25 12:08 Lymph % (Auto) 30.5 % 03/07/25 12:08 Amite % (Auto) 11.0 % 03/07/25 12:08 Eos % (Auto) 3.4 % 03/07/25 12:08 Baso % (Auto) 1.2 % 03/07/25 12:08 Neut # (Auto) 2.24 10^3/uL (1.8-7.7) 03/07/25 12:08 Lymph # (Auto) 1.3 10^3/uL (0.8-4.8) 03/07/25 12:08 Amite # (Auto) 0.5 10^3/uL (0.2-0.9) 03/07/25 12:08 Eos # (Auto) 0.1 10^3/uL (0.0-0.8) 03/07/25 12:08 Baso # (Auto) 0.1 10^3/uL (0.0-0.1) 03/07/25 12:08 Nucleated RBC % (auto) 0 % 03/07/25 12:08 Nucleated RBCs # 0.0 /100WBC 03/07/25 12:08 Sodium 137 mmol/L (136-145) 03/07/25 12:08 Potassium 5.3 mmol/L (3.5-5.1) H 03/07/25 12:08 Chloride 104 mmol/L (98-107) 03/07/25 12:08 Carbon Dioxide 21 mmol/L (22-29) L 03/07/25 12:08 Anion Gap 17.3 (5-19) 03/07/25 12:08 BUN 28 mg/dL (8-23) H 03/07/25 12:08 Creatinine 1.1 mg/dL (0.5-0.9) H 03/07/25 12:08 GFR Calculation 49.7 mL/min (90-130) L 03/07/25 12:08 Glucose 80 mg/dL (65-115) 03/07/25 12:08 Calculated Osmolality 288 mOsm/kg (285-295) 03/07/25 12:08 Calcium 8.8 mg/dL (8.5-10.5) 03/07/25 12:08 Total Bilirubin 0.2 mg/dL (0.15-1.2) 03/07/25 12:08 AST 22 U/L (0-32) 03/07/25 12:08 ALT 17 U/L (0-33) 03/07/25 12:08 Alkaline Phosphatase 91 U/L (35-105) 03/07/25 12:08 Troponin T Baseline 12 ng/L (0-10) H 03/07/25 12:08 Troponin T 120 Minute 11.69 ng/L (0-10) H 03/07/25 13:51 Delta Troponin T -0.31 ABS# (0-10) L 03/07/25 13:51 Total Protein 6.0 g/dL (6.6-8.7) L 03/07/25 12:08 Albumin 3.9 g/dL (3.5-5.2) 03/07/25 12:08 Globulin 2.1 g/dL (1.3-4.6) 03/07/25 12:08 All radiology interpretation(s) finalized by discharge Discharge Plan Discharge Patient Disposition: Home Clinical Impression: Anterior chest wall pain, Anemia Condition: Stable Prescriptions: No Action celecoxib 200 mg capsule 200 mg PO DAILY ropinirole 1 mg tablet 1 mg PO QPM hydrocodone-acetaminophen 5-325 mg tablet 1 tab PO TID sertraline 100 mg tablet 100 mg PO DAILY triamcinolone acetonide 0.1 % cream 1 applic TOPICAL BID baclofen 20 mg tablet 20 mg PO BID meclizine 25 mg tablet 25 mg PO TID PRN (Reason: Dizziness Or Vertigo) montelukast 10 mg tablet 10 mg PO BEDTIME albuterol sulfate 90 mcg/actuation HFA aerosol inhaler 1 puff inhalation Q6H PRN (Reason: Shortness Of Breath Or Wheezing) fluticasone propionate 50 mcg/actuation spray,suspension 2 spray INTRANASAL DAILY diclofenac sodium 1 % gel 2 g TOPICAL QID Discharge Orders: Discharge ED (Routine); Ordered 03/07/25 Ordered By: Emerson Gonzalez Discharge Diet: Usual diet Discharge Activity: Resume usual activity Patient Instructions: Opioid Safety, Pain Management, Patient Portal & Marnie Instructions Activity Restrictions/Additional Instructions: Thank you for choosing [facility] for your healthcare needs today. It is very important that you follow up as instructed or that you return to the Emergency Department should you have concerns or if your condition changes or worsens in any way. Emergency department visits are focused on emergent conditions, in some cases you may require further evaluation on an outpatient basis. You were seen in the emergency room with complaints of chest pain. Heart enzymes troponin are negative. We did note that your potassium was slightly elevated for which you were given fluids. You hemoglobin was also noted to be low. Your vital signs were stable anemia workup was drawn only emergency room was scheduled for unit of blood tomorrow and outpatients. You should follow-up with your primary care doctor to further evaluate your anemia. (Please note that included in your discharge packet is information concerning opioid safety and pain management. This information is given to all patients were discharged from the ER regardless of their discharge diagnosis or the medicines they usually take or are prescribed.) Print Language: Turkish Coding Level of Care Code ED Dentist for Misty Donovan
[2025-03-07 12:14] LABS: Hematocrit 24.4 % (36-47); Hemoglobin 7.70 g/dL (11.27-16.99); Mean Corpuscular HGB Conc 31.6 g/dL (30-55); Mean Corpuscular Hemoglobin 29.2 pg (27-33); Mean Corpuscular Volume 92.4 fl (85-98); Nucleated Red Blood Cells % 0 %; Platelet Count 208 10^3/cmm (157-399); Red Blood Count 2.64 10^6/uL (3.85-5.65); White Blood Count 4.17 10^3/uL (3.29-11.43)
[2025-03-07 12:17] VITALS: BP 167/87; PULSE 81; RESP 17; O2SAT 100
[2025-03-07 12:33] LABS: Troponin(5th) Baseline 12 ng/L (0-10)
[2025-03-07 12:55] LABS: Alanine Aminotransferase 17 U/L (0-33); Albumin Level 3.9 g/dL (3.5-5.2); Alkaline Phosphatase 91 U/L (35-105); Anion Gap 17.3 (5-19); Aspartate Amino Transferase 22 U/L (0-32); Blood Urea Nitrogen 28 mg/dL (8-23); Calcium 8.8 mg/dL (8.5-10.5); Carbon Dioxide 21 mmol/L (22-29); Chloride 104 mmol/L (98-107); Creatinine Clr Calc Pharmacy 39.2350; Globulin 2.1 g/dL (1.3-4.6); Glucose 80 mg/dL (65-115); Osmolality Calculated 288 mOsm/kg (285-295); Potassium 5.3 mmol/L (3.5-5.1); Sodium 137 mmol/L (136-145); Total Protein 6.0 g/dL (6.6-8.7)
[2025-03-07 14:05] VITALS: BP 167/95; PULSE 68; RESP 16; O2SAT 100
--- NOTE | 2025-03-07 14:06 | ECG_ITS ---
[facility] 2025-[facility]07 Pat Name: Yelena Beal Department: Room: Gender: Female Underground Conduit Installer: : 1960 Requested By: Emerson Escobar Order Number: [id number] Avila MD: Saúl Lucero M.D. Measurements Intervals [place] Rate: 76 P: 62 LA: 147 QRS: -17 QRSD: 103 T: 30 QT: 373 QTc: 420 Interpretive Statements SINUS RHYTHM Compared to ECG 03/07/2025 11:49:23 No significant changes Electronically Signed On 03-09-2025 20:26:07 CDT by Súal Lucero M.D. [email or web address]
[2025-03-07 14:38] LABS: Troponin 5 2HR 11.69 ng/L (0-10); Troponin 5 2HR Delta -0.31 ABS# (0-10)
[2025-03-07 15:16] VITALS: BP 157/81; PULSE 71; RESP 22; O2SAT 98
[2025-03-07 16:14] VITALS: BP 158/90; PULSE 70; O2SAT 98
[2025-03-07 16:22] LABS: Ferritin 51 ng/mL (15-150); Iron 58 ug/dL (37-145); Total Iron Binding Capacity 257 mcg/dl; Unsaturated Iron Binding 199 ug/dL (112-347)
[2025-03-07 16:36] LABS: Vitamin B12 389 pg/mL (232-1245)
== END 2025-03-07 16:15 | disposition home or self-care (01) ==
PROVIDERS: Emergency Provider Family Medicine
DX: R07.89 Other chest pain (principal); D64.9 Anemia, unspecified
CPT/HCPCS: 36415; 71045; 80053; 82607; 82668; 82728; 82746; 83010; 83540; 83550; 84484; 85025; 93005; 99285; J7030

== ENCOUNTER 2025-03-08 07:32 | Oncology outpatient (recurring) (ONCR) | payer MEDICARE, MEDICAID, SELFPAY ==
[2025-03-08 09:39] VITALS: BP 143/81; PULSE 90; RESP 17; TEMP 36.3; O2SAT 100
[2025-03-08 09:54] VITALS: BP 145/77; PULSE 79; RESP 17; TEMP 36.3; O2SAT 99
[2025-03-08 10:12] VITALS: BP 150/84; PULSE 74; RESP 17; TEMP 36.3; O2SAT 99
[2025-03-08 11:09] VITALS: BP 154/80; PULSE 70; RESP 17; TEMP 36.3; O2SAT 99
[2025-03-08 11:42] VITALS: BP 168/93; PULSE 82; RESP 17; TEMP 36.4; O2SAT 99
[2025-03-08 11:56] VITALS: BP 168/93; PULSE 82; RESP 17; TEMP 36.4; O2SAT 99
== END 2025-03-19 23:59 | disposition home or self-care (01) ==
PROVIDERS: Visit Provider Family Medicine
DX: D64.9 Anemia, unspecified (principal)
CPT/HCPCS: 36430; 86850; 86900; 86920; J7050; P9016

== ENCOUNTER → 2025-03-13 12:39 | Outpatient (BNVA) | payer MEDICARE, MEDICAID, SELFPAY | PROVIDERS: PCP Nurse Practitioner Family; Visit Provider Nurse Practitioner Family | DX: D64.9 Anemia, unspecified (principal); R07.89 Other chest pain | CPT/HCPCS: 80053; 80061; 84443; 85025 ==

== ENCOUNTER 2025-03-19 10:30 | Outpatient (CLI) | payer MEDICARE, MEDICAID, SELFPAY ==
--- NOTE | 2025-03-19 10:20 | MM_ITS ---
WS: [id number] Bilateral screening 3D tomosynthesis digital mammogram, 03/19/2025 10:36 AM Clinical Data: Z12.39 - Encounter for other screening for malignant neop... Comparison: 07/29/2023, 08/21/2021, 07/22/2020, 07/05/2019, 06/16/2015, 04/02/2014, 12/20/2012. Findings: The left breast shows increased tissue density and asymmetry in the upper outer quadrant. No spiculated masses or clustered calcifications are seen. There are no secondary signs of carcinoma. The right breast is normal. MM/MM scr BI tomosynthesis [id number] Impression: 1. Increased tissue density and asymmetry in upper outer quadrant left breast. 2. Recommend ML view, compression cc view and left breast ultrasound. BIRADS: 0 - Incomplete: Need additional imaging evaluation FOLLOW UP: See Report DENSITY: The breasts are heterogeneously dense, which may obscure small masses. The CAD wash test checker was used
--- NOTE | 2025-03-19 10:38 | XRR_ITS ---
PROCEDURE INFORMATION: Exam: XR Lumbosacral Spine Exam date and time: 03/19/2025 11:07 AM Age: 64 years old Clinical indication: Injury or trauma and condition or disease; Scoliosis; Blunt trauma (contusions or hematomas); Prior surgery; Surgery date: 6+ months; Surgery type: Stimulator; Multiple falls over last few years, stabbing pain in bilat hips and lower back, hip pain x6 months; Additional info: M41.9 - scoliosis, unspecified TECHNIQUE: Imaging protocol: Radiologic exam of the lumbosacral spine. Views: 2 or 3 views. COMPARISON: CR XR hip BI 3-4V wo/w pel [id number] 03/19/2025 11:07 AM FINDINGS: Bones/joints: Sacral nerve stimulator. Marked right scoliosis. Multilevel disc space narrowing and spurring. Mild anterolisthesis of L5 on S1. No acute fracture. Soft tissues: Unremarkable. XR/XR lumbar spine 2-3V* [id number] IMPRESSION: Scoliosis and degenerative changes.
--- NOTE | 2025-03-19 10:38 | XRR_ITS ---
PROCEDURE INFORMATION: Exam: XR Bilateral Hips Exam date and time: 03/19/2025 11:07 AM Age: 64 years old Clinical indication: Pain and injury or trauma; Blunt trauma (contusions or hematomas); Bilateral; Right hip; Injury details: Multiple falls over last few years, stabbing pain in bilat hips and lower back, hip pain x6 months; Additional info: M25.551 - pain in right hip TECHNIQUE: Imaging protocol: Radiologic exam of the bilateral hips. Views: 2 views of hips with pelvis when performed. COMPARISON: CR XR lumbar spine 2-3V* [id number] 03/19/2025 11:07 AM FINDINGS: Tubes, catheters and devices: Left sacral nerve stimulator. Bones/joints: Slight articular surface narrowing and spurring. No fracture or dislocation. No lytic or sclerotic bone lesion. No acute fracture. Soft tissues: Unremarkable. XR/XR hip BI 3-4V wo/w pel [id number] IMPRESSION: No acute findings.
== END 2025-03-19 10:31 | disposition home or self-care (01) ==
LOC: RAD 10:32
PROVIDERS: PCP Nurse Practitioner Family; Visit Provider Nurse Practitioner Family
DX: Z12.31 Encounter for screening mammogram for malignant neoplasm of breast (principal); N64.89 Other specified disorders of breast; R92.333 Mammographic heterogeneous density, bilateral breasts; Z96.89 Presence of other specified functional implants; M41.86 Other forms of scoliosis, lumbar region; M51.369 Other intervertebral disc degeneration, lumbar region without mention of lumbar back pain or lower extremity pain; M43.17 Spondylolisthesis, lumbosacral region; M54.42 Lumbago with sciatica, left side; M54.41 Lumbago with sciatica, right side; G89.29 Other chronic pain; M25.552 Pain in left hip
CPT/HCPCS: 72100; 73522; 77063; 77067; 99214

== ENCOUNTER 2025-03-22 14:44 | Outpatient (CLI) | payer MEDICARE, MEDICAID, SELFPAY ==
--- NOTE | 2025-03-22 15:00 | XR_ITS ---
WS: [id number] DEXA (DUAL ENERGY X-RAY ABSORPTIOMETRY) Bone mineral density was performed using a [employer] machine. HISTORY: M54.9 - Dorsalgia, unspecified COMPARISON: None available. Lumbar spine BMD (L1-L4): 1.261 g/cm2 T score: 0.7 Z score: 2.8 Total hip BMD: Left: 0.688 g/cm2. T score: -2.5 Z score: -0.9 Right: 0.667 g/cm2. T score: -2.7 Z score: -1.0 10 year probability of a major osteoporotic fracture is 11.1%. Marked RIGHT curvature lumbar spine. XR/XR DEXA axial skeleton* [id number] IMPRESSION: OSTEOPOROSIS based upon the WHO classification for females.
== END 2025-03-22 14:45 | disposition home or self-care (01) ==
LOC: RAD 14:46
PROVIDERS: PCP Nurse Practitioner Family; Visit Provider Nurse Practitioner Family
DX: Z13.820 Encounter for screening for osteoporosis (principal); M81.0 Age-related osteoporosis without current pathological fracture
CPT/HCPCS: 77080

== ENCOUNTER → 2025-03-25 08:46 | Outpatient (BNVA) | payer MEDICARE, MEDICAID, SELFPAY | PROVIDERS: PCP Nurse Practitioner Family; Referring Provider Nurse Practitioner Family; Visit Provider Student in an Organized Health Care Education/Training Program | DX: D64.9 Anemia, unspecified (principal) | CPT/HCPCS: 99204 ==

== ENCOUNTER 2025-04-08 15:30 | Outpatient (RCR) | payer MEDICARE, MEDICAID, SELFPAY | END 2025-04-19 23:59 | disposition home or self-care (01) | LOC: TPT 15:30 | PROVIDERS: PCP Nurse Practitioner Family; Visit Provider Nurse Practitioner Family | DX: M25.552 Pain in left hip (principal) | CPT/HCPCS: 97110; 97162 ==

== ENCOUNTER 2025-05-02 14:35 | Outpatient (CLI) | payer MEDICARE, MEDICAID, SELFPAY ==
--- NOTE | 2025-05-02 14:42 | US_ITS ---
WS: [id number] Exam: US breast LT limited* [id number] Date/Time of Exam: 05/02/2025 3:57 PM Reason For Exam: ABNORMAL MAMMO Regional ultrasound of the upper outer quadrant of the LEFT breast is performed. No suspicious solid mass or nodule identified. No cysts were noted in this region. Recommendations: Continued annual yearly screening mammography. US/US breast LT limited* [id number] IMPRESSION: 1. No suspicious ultrasound findings. BI-RADS Category 2.
--- NOTE | 2025-05-02 14:42 | MM_ITS ---
WS: [email or web address] VIEWS: MLO, CC, and ML views LEFT breast. 3D digital tomosynthesis is also included in this exam. Comparison made with prior exam of 12/20/2012, 04/02/2014, 06/16/2015, 11/29/2016, 07/05/2019, 07/22/2020, 08/21/2021, 07/29/2023.. Findings: The breasts are heterogeneously dense, which may obscure small masses. No suspicious mass, tumor calcification or architectural distortion. Regional ultrasound of the upper outer quadrant of the LEFT breast is suggested for further work-up. MM/MM diag LT tomosynthesis [id number] Impression: BI-RADS: 0 - Incomplete: Need additional imaging evaluation FOLLOW-UP: See Report This mammogram was also analyzed by the Computer Aided Detection System [employer].
== END 2025-05-02 14:36 | disposition home or self-care (01) ==
LOC: RAD 14:37
PROVIDERS: PCP Nurse Practitioner Family; Visit Provider Nurse Practitioner Family
DX: R92.8 Other abnormal and inconclusive findings on diagnostic imaging of breast (principal); R92.333 Mammographic heterogeneous density, bilateral breasts
CPT/HCPCS: 76642; 77061; 77063